=== PATIENT | female | born 1970 | race Caucasian/White ===

== ENCOUNTER → 2017-10-08 09:52 | Outpatient (CLI) | payer OTHER, SELFPAY ==
--- NOTE | 2017-10-08 | DI.MG.S_ITS ---
BILATERAL DIGITAL SCREENING MAMMOGRAM 3D/2D WITH CAD: 10/08/2017 CLINICAL: Routine screening. Family history of breast cancer. Comparison is made to exams dated: 09/24/2016 mammogram, 09/23/2015 mammogram, and 09/16/2014 mammogram - [facility]. The tissue of both breasts is extremely dense, which lowers the sensitivity of mammography. Current study was also evaluated with a Computer Aided Detection (CAD) system. There is an oval equal density asymmetry with an obscured and indistinct margin and punctate calcifications in the right breast at 11 o'clock middle depth. No other significant masses, calcifications, or other findings are seen in either breast. IMPRESSION: INCOMPLETE: NEEDS ADDITIONAL IMAGING EVALUATION The oval equal density asymmetry in the right breast is indeterminate. Mediolateral and spot compression views as well as additional views with possible ultrasound are recommended. This exam was interpreted at Station ID: [id number]. NOTE: For mammograms, a report in lay terms will be sent to the patient. Approximately 15% of breast malignancies will not be visualized mammographically. In the management of a palpable breast mass, a negative mammogram must not discourage biopsy of a clinically suspicious lesion. Electronically Signed By: Juan tate/lali:10/08/2017 11:25:21 copy to: Oxana Caballero letter sent: Additional Imaging Needed ACR BI-RADS Category 0: Incomplete 3340F
== END ==
PROVIDERS: PCP Family Medicine; Visit Provider Family Medicine
DX: Z12.31 Encounter for screening mammogram for malignant neoplasm of breast (principal); Z80.3 Family history of malignant neoplasm of breast
CPT/HCPCS: 77063; 77067

== ENCOUNTER → 2017-10-15 14:13 | Outpatient (CLI) | payer OTHER, SELFPAY ==
--- NOTE | 2017-10-15 14:15 | DI.MG.S_ITS ---
UNILATERAL RIGHT DIGITAL DIAGNOSTIC MAMMOGRAM 3D/2D: 10/15/2017 CLINICAL: Additional evaluation requested from prior study. Comparison is made to exams dated: 10/08/2017 mammogram, 09/24/2016 mammogram, and 09/23/2015 mammogram - [facility]. The tissue of the right breast is extremely dense, which lowers the sensitivity of mammography. There is a calcification in the right breast at 11 o'clock middle depth. The oval equal density asymmetry with an obscured and indistinct margin in the right breast at 11 o'clock middle depth is not seen in additional views. No other significant masses or calcifications are seen in the breast. IMPRESSION: BENIGN The calcification in the right breast at 11 o'clock middle depth likely represents early vascular calcification and is benign. There is no mammographic evidence of malignancy. A 1 year screening mammogram is recommended. NOTE: For mammograms, a report in lay terms will be sent to the patient. Approximately 15% of breast malignancies will not be visualized mammographically. In the management of a palpable breast mass, a negative mammogram must not discourage biopsy of a clinically suspicious lesion. Electronically Signed By: Sofiya Swartz M.D. lk/:10/15/2017 15:08:43 copy to: Oxana Caballero letter sent: Normal Exam ACR BI-RADS Category 2: Benign Finding(s) 3342F
== END ==
PROVIDERS: PCP Family Medicine; Visit Provider Family Medicine
DX: R92.1 Mammographic calcification found on diagnostic imaging of breast (principal)
CPT/HCPCS: 77065; G0279

== ENCOUNTER → 2018-06-25 13:49 | Outpatient (CLI) | payer OTHER, SELFPAY ==
--- NOTE | 2018-06-25 | DI.MRI.S_ITS ---
PROCEDURE: MR FOOT RT WO/W CON INDICATIONS: RIGHT FOOT PAIN TECHNIQUE: Noncontrast sagittal T1 spin echo and T2 fast spin echo with fat saturation, long-axis T1 spin echo and T2 fast spin echo with fat saturation; short-axis T1 spin echo, proton density fast spin echo, and T2 fast spin echo with fat saturation through the forefoot. Post-contrast short axis, long axis, and sagittal T1 spin echo with fat saturation through the forefoot. COMPARISON: [facility], CR, ANKLE 3 VIEWS RIGHT, 03/04/2016, 15:50. FINDINGS: Image quality: Diagnostic. Bones and joints: There is diffuse marrow edema identified involving the navicular without a discrete fracture evident. There may be a microtrabecular fracture along the proximal margin of the bone. Additional marrow edema is evident involving the cuneiforms and the cuboid. There is prominent focal marrow edema evident involving the head of the proximal phalanx of the great toe with an associated joint effusion and mild dorsal subluxation of the distal phalanx with respect to the proximal phalanx. Mild marrow edema is also present involving the calcaneus. No suspicious bony enhancement on the postcontrast images is evident. Soft tissues: Soft tissue edema is identified between the 1st/2nd and 2nd/3rd toes with corresponding subtle enhancement. No definable soft tissue masses are appreciated within this region. The flexor and extensor tendons of the forefoot are within normal limits. The Lisfranc ligament is thinned, but not well seen. No soft tissue masses or loculated fluid collections are identified. No significant atrophy of the intrinsic muscles of the foot are evident. IMPRESSION: 1. No definite soft tissue or bony mass is appreciated. If prior imaging is available, this would be helpful for comparison purposes. 2. Soft tissue edema between the 1st through 3rd toes with corresponding enhancement may be reactive. No definite fluid collections or soft tissue masses. 3. Severe degenerative changes of the interphalangeal joint of the great toe with associated subluxation of the distal phalanx with respect to the proximal phalanx could potentially be related to previous trauma. There is an associated joint effusion. Please correlate clinically to exclude the possibility of superimposed osteomyelitis and infectious synovitis. 4. Prominent marrow edema involving the midfoot bones is most pronounced involving the navicular. A stress fracture is suspected involving the navicular. Dictated by: Arnold Call M.D. on 06/25/2018 at 16:13 Approved by: Arnold Call M.D. on 06/25/2018 at 16:21
== END ==
PROVIDERS: PCP Family Medicine; Visit Provider Podiatrist
DX: M79.671 Pain in right foot (principal); S93.131A Subluxation of interphalangeal joint of right great toe, initial encounter; M25.474 Effusion, right foot; M19.071 Primary osteoarthritis, right ankle and foot
CPT/HCPCS: 73720; A9579

== ENCOUNTER → 2018-08-29 07:48 | Outpatient (CLI) | payer OTHER, SELFPAY ==
[2018-08-29 08:54] LABS: Add Manual Diff / Slide Review NO; Basophils Absolute Auto 100 /uL (0-100); Basophils Percent Auto 1.3 % (0-2); Eosinophils Absolute Auto 400 /uL (0-450); Eosinophils Percent Auto 6.6 % (2-4); Hematocrit 41.1 % (36-46); Hemoglobin 13.5 g/dL (12.0-16.0); Lymphocytes Absolute Auto 1700 /uL (1100-4500); Lymphocytes Percent Auto 30.5 % (25-40); Mean Corpuscular Hemoglobin 31.4 PG (26-34); Mean Corpuscular Volume 95.2 fL (80-100); Monocytes Absolute Auto 500 /uL (0-900); Monocytes Percent Auto 8.4 % (3-14); Neutrophils Absolute Auto 3000 /uL (1500-7000); Neutrophils Percent Auto 53.2 % (50-75); Platelet Count 232 X10^3/uL (150-400); Red Blood Cell Count 4.31 X10^6/uL (4.0-5.2); Red Cell Distribution Width 12.9 % (11.6-14.8); White Blood Cell Count 5.6 X10^3/uL (4.5-11.0)
[2018-08-29 09:20] LABS: Alanine Aminotransferase 27 IU/L (9-52); Albumin 4.6 g/dL (3.5-5.0); Albumin Globulin Ratio 1.6 (1.0-2.8); Alkaline Phosphatase 48 U/L (38-126); Aspartate Aminotransferase 35 IU/L (14-36); BUN Creatinine Ratio 15.7 (6-22); Bilirubin Total 0.8 mg/dL (0.2-1.3); Blood Urea Nitrogen 11 mg/dL (7-17); Calcium 9.6 mg/dL (8.4-10.2); Carbon Dioxide 28 mmol/L (22-32); Chloride 100 mmol/L (98-107); Cholesterol 213 mg/dL (140-199); Estimated Glomerular Filt Rate > 60.0 mL/min (>60); Globulin 2.9 g/dL (1.7-4.1); Glucose 78 mg/dL (70-100); HDL Cholesterol 88 mg/dL (40-60); HEMOLYSIS < 15 (0-50); LDL Cholesterol Calculated 112 mg/dL (<100); Sodium 137 mmol/L (137-145); Total Protein 7.5 g/dL (6.3-8.2); Triglycerides 63 mg/dL (35-150)
[2018-08-29 09:52] LABS: TSH w/ Reflex to FT4 0.04 uIU/mL (0.47-4.68)
== END ==
PROVIDERS: PCP Family Medicine; Visit Provider Family Medicine
DX: G43.709 Chronic migraine without aura, not intractable, without status migrainosus (principal); R25.1 Tremor, unspecified
CPT/HCPCS: 36415; 80053; 80061; 84439; 84443; 85025

== ENCOUNTER → 2018-10-20 14:25 | Outpatient (CLI) | payer OTHER, SELFPAY ==
--- NOTE | 2018-10-20 | DI.MG.S_ITS ---
BILATERAL DIGITAL SCREENING MAMMOGRAM 3D/2D WITH CAD: 10/20/2018 CLINICAL: Routine screening. Comparison is made to exams dated: 10/08/2017 mammogram, 09/24/2016 mammogram, and 09/23/2015 mammogram - [facility]. The tissue of both breasts is extremely dense, which lowers the sensitivity of mammography. Current study was also evaluated with a Computer Aided Detection (CAD) system. No significant masses, calcifications, or other findings are seen in either breast. There has been no significant interval change. IMPRESSION: NEGATIVE There is no mammographic evidence of malignancy. A 1 year screening mammogram is recommended. This exam was interpreted at Station ID: [id number]. NOTE: For mammograms, a report in lay terms will be sent to the patient. Approximately 15% of breast malignancies will not be visualized mammographically. In the management of a palpable breast mass, a negative mammogram must not discourage biopsy of a clinically suspicious lesion. Electronically Signed By: Juan tate/lali:10/20/2018 17:09:12 copy to: Oxana Caballero letter sent: Normal Exam ACR BI-RADS Category 1: Negative 3341F
== END ==
PROVIDERS: PCP Family Medicine; Visit Provider Family Medicine
DX: Z12.31 Encounter for screening mammogram for malignant neoplasm of breast (principal)
CPT/HCPCS: 77063; 77067

== ENCOUNTER → 2018-12-25 10:49 | Outpatient (CLI) | payer OTHER, SELFPAY ==
[2018-12-25 13:44] LABS: TSH w/ Reflex to FT4 0.45 uIU/mL (0.47-4.68)
[2018-12-25 14:43] LABS: Free T4, Direct Thyroxine 1.11 ng/dL (0.78-2.19)
== END ==
PROVIDERS: PCP Family Medicine; Visit Provider Family Medicine
DX: E03.9 Hypothyroidism, unspecified (principal)
CPT/HCPCS: 36415; 84439; 84443

== ENCOUNTER → 2020-04-27 10:27 | Outpatient (CLI) | payer OTHER, SELFPAY | PROVIDERS: PCP Family Medicine; Referring Provider Family Medicine; Visit Provider Family Medicine | DX: Z12.31 Encounter for screening mammogram for malignant neoplasm of breast (principal); Z53.8 Procedure and treatment not carried out for other reasons ==

== ENCOUNTER → 2020-05-04 10:43 | Outpatient (CLI) | payer OTHER, SELFPAY ==
[2020-05-04 12:11] LABS: WBC Urine None Seen (0-5/HPF)
[2020-05-04 12:20] LABS: Appearance Urine UA CLEAR; Bilirubin Urine UA NEGATIVE (NEGATIVE); Color Urine UA YELLOW; Glucose Urine UA NEGATIVE (Negative); Ketones Urine UA NEGATIVE (NEGATIVE); Leukocyte Esterase Urine UA NEGATIVE (NEGATIVE); Nitrite Urine UA NEGATIVE (Negative); Occult Blood Urine UA 2+ (Negative); Protein Urine UA NEGATIVE (Negative); Specific Gravity Urine UA 1.015 (1.000-1.035); Urobilinogen Urine UA 0.2 E.U./dL (0.2)
[2020-05-04 12:35] LABS: Bacteria Urine Occasional (0-1); RBC Urine 0-1/HPF (0-5/HPF)
[2020-05-04 12:36] LABS: Culture Indicated Urine Cult Not Indicated
== END ==
PROVIDERS: PCP Family Medicine; Visit Provider Obstetrics & Gynecology
DX: R30.0 Dysuria (principal)
CPT/HCPCS: 81001

== ENCOUNTER → 2020-05-04 10:50 | Outpatient (CLI) | payer OTHER, SELFPAY ==
[2020-05-04 12:06] LABS: Free T3, Triiodothyronine Free 3.74 pg/mL (2.77-5.27); Free T4, Direct Thyroxine 1.04 ng/dL (0.78-2.19)
[2020-05-04 12:20] LABS: Thyroid Stimulating Hormone 1.06 uIU/mL (0.47-4.68)
== END ==
PROVIDERS: PCP Family Medicine; Referring Provider Obstetrics & Gynecology; Visit Provider Obstetrics & Gynecology
DX: E03.9 Hypothyroidism, unspecified (principal); R30.0 Dysuria
CPT/HCPCS: 36415; 81001; 83001; 84439; 84443; 84481

== ENCOUNTER → 2020-05-17 08:45 | Outpatient (CLI) | payer OTHER, SELFPAY ==
--- NOTE | 2020-05-17 08:47 | DI.MG.S_ITS ---
BILATERAL DIGITAL DIAGNOSTIC MAMMOGRAM 3D/2D: 05/17/2020 CLINICAL: Mastodynia. Comparison is made to exams dated: 10/20/2018 mammogram, 10/15/2017 mammogram, 10/08/2017 mammogram, and 09/24/2016 mammogram - [facility]. The tissue of both breasts is extremely dense, which lowers the sensitivity of mammography. No significant masses, calcifications, or other findings are seen in either breast. IMPRESSION: NEGATIVE There is no abnormality seen in the right breast to correspond with the area of clinical concern and pain in the upper outer quadrant, however, clinical followup is recommended. There is no mammographic evidence of malignancy. A 1 year screening mammogram is recommended. This exam was interpreted at Station ID: [id number]. NOTE: For mammograms, a report in lay terms will be sent to the patient. Approximately 15% of breast malignancies will not be visualized mammographically. In the management of a palpable breast mass, a negative mammogram must not discourage biopsy of a clinically suspicious lesion. Electronically Signed By: Shelton Baeza acr/:05/17/2020 09:27:39 copy to: Oxana Caballero letter sent: Clinical Evaluation ACR BI-RADS Category 1: Negative 3341F
== END ==
PROVIDERS: PCP Family Medicine; Referring Provider Family Medicine; Visit Provider Family Medicine
DX: N64.4 Mastodynia
CPT/HCPCS: 77066; G0279

== ENCOUNTER → 2020-06-09 09:33 | Outpatient (CLI) | payer OTHER, SELFPAY ==
[2020-06-09 10:14] LABS: COVID19 -Nasal RAPID Negative (Negative)
== END ==
PROVIDERS: PCP Family Medicine; Visit Provider Surgery
DX: Z01.812 Encounter for preprocedural laboratory examination (principal); Z20.822 Contact with and (suspected) exposure to COVID-19
CPT/HCPCS: 87635; C9803

== ENCOUNTER 2020-06-10 09:00 | Day surgery (SDC) | payer OTHER, SELFPAY ==
[2020-06-10] VITALS (7 sets, daily range): BP systolic 89–107; BP diastolic 54–69; PULSE 59–82; RESP 14–22; TEMP 36.4–37.1; O2SAT 96–100
[2020-06-10] MEDS: SODIUM CHLORIDE 0.9% 1,000 ML 200 ML IV (09:24)
--- NOTE | 2020-06-10 09:49 | PM.HP.1 ---
History of Present Illness History of Present Illness Date Patient Seen: 06/10/20 Time Patient Seen: 09:50 Chief complaint: SDC Narrative: This is a 49-year-old woman is here for her 1st screening colonoscopy. She denies any symptoms of melena, hematochezia, unexplained abdominal pain, unexplained weight loss. ROS: Thirteen system review is otherwise negative other than as mentioned below and in HPI. PE: GENERAL: Well groomed and cooperative. Appears stated age. Answers questions promptly and appropriately. Vital signs noted. HENT: Normocephalic, atraumatic. Hearing intact. EYES: Conjunctiva pink, sclera white, no periorbital swelling. CARDIOVASCULAR: Regular rate. No pedal edema. RESPIRATORY: Non-tachypneic, breathing comfortably on room air. GASTROINTESTINAL: Abdomen soft and non-distended GENITALURINARY: No flank tenderness. MUSCULOSKELETAL: Equal tone and mass bilaterally. SKIN: Warm, dry, soft, appropriate color for ethnicity. No other lesions, rashes, or wounds. NEURO: Alert and Oriented X 3. No gross sensory deficits, or cognitive issues. PSYCH: Appropriate affect and mood. Patient History Medical History Anxiety Chronic migraine Surgical History Facial fracture History of varicose vein stripping Status post laparoscopic supracervical hysterectomy Status post laparoscopy Family & Social History Family History Mother Melanoma Bipolar 1 disorder Lipids abnormal Social History: household members spouse Tobacco & Substance use: Smoking Status Never smoker alcohol intake never Substance Use Type does not use Meds Home Medications and Allergies Home Medications Medication Instructions Recorded Confirmed Type galcanezumab-gnlm 120 mg/mL 120 mg SUBCUT QMONTH #1 ml 03/10/19 06/10/20 Rx subcutaneous pen injector sumatriptan succinate 25 mg tablet 50 mg PO Q2H PRN #30 tab 09/25/19 06/10/20 Rx bupropion HCl 150 mg tablet,12 hr 150 mg PO BID #180 tab 11/23/19 06/10/20 Rx sustained-release citalopram 20 mg tablet 20 mg PO QDAY #90 tab 03/21/20 06/10/20 Rx levothyroxine 88 mcg tablet 88 mcg PO DAILY #90 tab 03/21/20 06/10/20 Rx Allergies Allergy/AdvReac Type Severity Reaction Status Date / Time amoxicillin [AMOXICILLIN] AdvReac Mild stomach Verified 05/04/20 10:06 pain Exam Vital Signs (past 8 hours): - 06/10/20 09:17 Temperature 98.8 F Pulse Rate 69 Respiratory Rate 16 Blood Pressure 89/62 L Pulse Oximetry 96 Oxygen Delivery Method Room Air Assessment & Plan Assessment & Plan narrative: Risks and benefits of screening colonoscopy and possible polypectomy were discussed with the patient including risk of bleeding, perforation, need for additional procedures, risks of anesthesia. The patient desires to proceed with the colonoscopy procedure. COVID-19 COVID-19 status: Negative Result date/Date tested (Pos, Neg/Pending): 06/09/20 Time Spent With Patient Time with patient: 15-24 minutes Quality VTE Deep Vein Thrombosis/Pulmonary Embolism Present on Admission: No
--- NOTE | 2020-06-10 10:38 | PM.OP.ENDO ---
Operative Date/Time/Diagnoses Date of procedure: 06/10/20 Time of procedure: 10:38 Pre-op diagnosis: Average risk for colon cancer, never had a screening colonoscopy Post-op diagnosis: other (Extremely tortuous colon, no polyps or masses seen, inadequate prep to see lesions small 5 mm) Procedure & Clinicians Study performed: Colonoscopy Procedural sedation performed by the endoscopist Same procedure as scheduled: Yes Indications: Average risk for colon cancer, never had a screening colonoscopy Surgeon: Sagrario Camp Procedure Notes SCOAP/Timeout: Performed Procedure in detail: The patient was brought to the room and placed in left lateral decubitus position with all bony prominences padded. A time-out was performed and then the patient was given procedural sedation starting with 4 mg of Versed and 100 mcg of fentanyl. Total of 7 mg of Versed and 250 micro g of fentanyl were given for the entire procedure. Vitals were monitored throughout the procedure and remained stable. Once adequately sedated, the procedure was begun. A rectal exam was performed revealing no abnormalities. The colonoscope was then introduced to the rectum and advanced to the cecum in the usual fashion. The colon was extremely tortuous, requiring multiple maneuvers including abdominal pressure, using the scope stiffener, and turning the patient on her back. Had to advance the scope blindly around some very extremely torsed appearing areas of the sigmoid colon. The cecum was identified by the appendiceal orifice, the mucosal tri-fold, and the ileocecal valve. The prep was incomplete, and there was pooled stool, as well as adherent stool to the kelly of the colon. After extensive washing, we still were not able to see well enough to rule out lesions smaller than 5 mm. The scope was then retracted while rotating side to side and examining each mucosal fold. At the conclusion of the procedure retroflexion was performed and small grade 1-2 internal hemorrhoids without stigmata of bleeding were seen. The scope was then withdrawn from the rectum the procedure was concluded. The patient tolerated the procedure well and was transferred to the PACU in stable condition. Scope withdrawal time: 8 Sedation minutes: 38 Findings: other findings (Extremely tortuous colon, incomplete prep) Specimen(s): none sent Complications: none Impression: Very tortuous colon, otherwise normal scope within the limitations of the prep. Post-procedure Recommendations: Colonscopy in 5 years (Due to incomplete prep. Next bowel prep should be done with 2 days of clear liquids prior to oral bowel prep medication.) Follow up: as needed Disposition: PACU
[2020-06-10] MEDS: fentaNYL 250 MCG/5 ML INJ IV (10:43)
[2020-06-10] MEDS: MIDAZOLAM 5 MG/5 ML VIAL IV (10:43)
[2020-06-10] MEDS: ONDANSETRON 4 MG ODT SL (11:25)
[2020-06-10] MEDS: ACETAMINOPHEN 325 MG TABLET 650 MG PO (11:28)
--- NOTE | 2020-06-10 11:40 | SUR.PHASEII ---
pt getting ready to leave, IV out and dressed. Stood up and migraine returned with nausea. pt states she had migraine prior to admit and has migraine medication at home. notifeid MD and order for tylenol and SL zofran obtained and given to pt. She had sundar joe and christie cracker as well. States she is ready to go home. Stable on her feeet. out to car in w/c where ready to take her home.
== END 2020-06-10 11:32 | disposition home or self-care (01) ==
PROVIDERS: PCP Family Medicine; Referring Provider Surgery; Visit Provider Surgery
PROC: 0DJD8ZZ Inspection of Lower Intestinal Tract, Via Natural or Artificial Opening Endoscopic (ICD-10-PCS; CPT 45378; principal; 2020-06-10 10:00)
DX: Z12.11 Encounter for screening for malignant neoplasm of colon (principal); K64.0 First degree hemorrhoids; Z53.09 Procedure and treatment not carried out because of other contraindication
CPT/HCPCS: 45378; 99152; 99153; J2250; J3010

== ENCOUNTER → 2021-05-19 08:20 | Outpatient (CLI) | payer OTHER, SELFPAY ==
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
[2021-05-19 08:57] LABS: Add Manual Diff / Slide Review NO; Basophils Absolute Auto 0 /uL (0-100); Basophils Percent Auto 0.2 % (0-2); Eosinophils Absolute Auto 300 /uL (0-450); Eosinophils Percent Auto 5.3 % (2-4); Hemoglobin 12.8 g/dL (12.0-16.0); Lymphocytes Absolute Auto 2200 /uL (1100-4500); Lymphocytes Percent Auto 34.8 % (25-40); Mean Corpuscular HGB Conc 33.7 % (30-36); Mean Corpuscular Hemoglobin 31.7 PG (26-34); Mean Corpuscular Volume 94.1 fL (80-100); Monocytes Absolute Auto 500 /uL (0-900); Monocytes Percent Auto 8.2 % (3-14); Neutrophils Absolute Auto 3300 /uL (1500-7000); Neutrophils Percent Auto 51.5 % (50-75); Platelet Count 240 X10^3/uL (150-400); Red Blood Cell Count 4.04 X10^6/uL (4.0-5.2); Red Cell Distribution Width 12.8 % (11.6-14.8); White Blood Cell Count 6.3 X10^3/uL (4.5-11.0)
[2021-05-19 09:13] LABS: Alanine Aminotransferase 15 IU/L (<35); Albumin 4.6 g/dL (3.5-5.0); Albumin Globulin Ratio 1.7 (1.0-2.8); Alkaline Phosphatase 39 U/L (38-126); Aspartate Aminotransferase 32 IU/L (14-36); BUN Creatinine Ratio 9.7 (6-22); Bilirubin Total 0.5 mg/dL (0.2-1.3); Blood Urea Nitrogen 7 mg/dL (7-17); Calcium 9.8 mg/dL (8.4-10.2); Carbon Dioxide 32 mmol/L (22-32); Chloride 101 mmol/L (98-107); Estimated Glomerular Filt Rate > 60.0 mL/min (>60); Globulin 2.7 g/dL (1.7-4.1); Glucose 47 mg/dL (70-100); HEMOLYSIS < 15 (0-50); Potassium 3.8 mmol/L (3.4-5.1); Sodium 135 mmol/L (137-145); Total Protein 7.3 g/dL (6.3-8.2)
[2021-05-19 09:28] LABS: Vitamin D 25 Hydroxy (D3) 38.7 ng/mL (30.0-100.0)
[2021-05-19 09:43] LABS: Thyroid Stimulating Hormone 2.59 uIU/mL (0.47-4.68)
== END ==
PROVIDERS: PCP Family Medicine; Referring Provider Physician Assistant; Visit Provider Physician Assistant
DX: M54.16 Radiculopathy, lumbar region (principal); E03.9 Hypothyroidism, unspecified; E78.2 Mixed hyperlipidemia; M85.80 Other specified disorders of bone density and structure, unspecified site; Z78.0 Asymptomatic menopausal state
CPT/HCPCS: 36415; 72114; 80053; 82306; 84443; 85025

== ENCOUNTER → 2021-05-25 15:09 | Outpatient (CLI) | payer OTHER, SELFPAY | PROVIDERS: PCP Family Medicine; Referring Provider Physician Assistant; Visit Provider Physician Assistant | DX: M81.0 Age-related osteoporosis without current pathological fracture (principal); Z78.0 Asymptomatic menopausal state; K92.9 Disease of digestive system, unspecified; E89.40 Asymptomatic postprocedural ovarian failure | CPT/HCPCS: 77080 ==

== ENCOUNTER → 2021-05-26 10:54 | Outpatient (CLI) | payer OTHER, SELFPAY ==
[2021-05-26 11:50] LABS: Glucose 86 mg/dL (70-100)
== END ==
PROVIDERS: PCP Family Medicine; Referring Provider Physician Assistant; Visit Provider Physician Assistant
DX: E16.2 Hypoglycemia, unspecified (principal)
CPT/HCPCS: 36415; 82947

== ENCOUNTER → 2021-06-02 11:53 | Outpatient (CLI) | payer OTHER, SELFPAY ==
--- NOTE | 2021-06-02 11:54 | DI.RAD.S_ITS ---
PROCEDURE: XR LUMBAR SPINE 2-3V INDICATIONS: L4-5 spondylolisthesis TECHNIQUE: 3 views of the lumbar spine were acquired. COMPARISON: [facility], CR, XR LUMBAR SPINE 6V W BENDING, 05/19/2021, 8:53. FINDINGS: Bones: 5 beu-fwa-ehedxru vertebrae are present. There is mild L4-L5 anterolisthesis. No vertebral body compression fractures. No suspicious bony lesions. Flexion extension views demonstrate normal range of motion stable alignment without abnormal vertebral body translation. Soft tissues: Overlying bowel gas pattern is normal. No suspicious soft tissue calcifications. IMPRESSION: Grade 1 L4-L5 degenerative spondylolisthesis. Normal range of motion in the flexed and extended positions with no abnormal vertebral body motion. Dictated by: Katerine Grewal MD, PhD on 06/02/2021 at 16:54 Approved by: Katerine Grewal MD, PhD on 06/02/2021 at 16:55
== END ==
PROVIDERS: PCP Family Medicine; Referring Provider Physical Medicine & Rehabilitation; Visit Provider Physical Medicine & Rehabilitation
DX: M43.16 Spondylolisthesis, lumbar region (principal)
CPT/HCPCS: 72100

== ENCOUNTER → 2021-06-07 09:48 | Outpatient (CLI) | payer OTHER, SELFPAY ==
--- NOTE | 2021-06-07 09:50 | DI.MRI.S_ITS ---
PROCEDURE: MR LUMBAR SPINE WO CON INDICATIONS: L4-5 spondylolisthesis TECHNIQUE: Noncontrast sagittal T1 spin echo and T2 fast echo, sagittal STIR, axial T1 and T2 fast spin echo through the lumbar spine. In cases with scoliosis, additional coronal T2 fast spin echo may be performed. COMPARISON: [facility], CT, ABDOMEN/PELVIS WITH CONTRAST, 03/07/2009, 10:56. [facility], CR, XR LUMBAR SPINE 6V W BENDING, 05/19/2021, 8:53. [facility], CR, XR LUMBAR SPINE 2-3V, 06/02/2021, 11:53. FINDINGS: Image quality: This examination is limited by involuntary motion artifact. Alignment and Curvature: Grade 1 L4-5 anterolisthesis is again seen. No definite associated pars defects are seen. Bone Marrow: Marrow is of normal overall signal. No acute vertebral body compression fractures. At the T11 level, there is a mild anterior wedge deformity, with approximately 20% loss of height anteriorly. No acute features are seen. Spinal Cord: Conus medullaris terminates at the L1 level. Visualized cord demonstrates normal signal and size. Paraspinous Soft Tissues: No paravertebral masses. T11-T12: Mild loss of disc height is seen. Loss of disc signal is seen. No significant neural foraminal or central canal narrowing can be seen. T12-L1: Normal appearance. L1-L2: Normal appearance. L2-L3: Normal appearance. L3-L4: No significant neural foraminal or central canal narrowing can be seen. L4-L5: Mild loss of disc height is seen. Loss of disc signal is seen. Moderate disc bulge is seen, with a central disc protrusion/disc uncovering. Prominent facet hypertrophy is seen at this level. There is moderate to severe bilateral neural foraminal narrowing seen. There is a degree of compression seen upon the exiting nerve roots. Moderate to severe central canal narrowing is seen at this level, as on series 5, image 24. L5-S1: No significant abnormality is seen. IMPRESSION: Focal L4-L5 degenerative change is seen, with moderate to severe bilateral neural foraminal narrowing and moderate to severe central canal narrowing. Incidental note is made of: Remote T11 anterior wedge deformity Dictated by: Nelson Fuchs M.D. on 06/07/2021 at 9:51 Approved by: Nelson Fuchs M.D. on 06/07/2021 at 9:56
== END ==
PROVIDERS: PCP Family Medicine; Referring Provider Physical Medicine & Rehabilitation; Visit Provider Physical Medicine & Rehabilitation
DX: M43.16 Spondylolisthesis, lumbar region (principal); M47.816 Spondylosis without myelopathy or radiculopathy, lumbar region; M48.061 Spinal stenosis, lumbar region without neurogenic claudication
CPT/HCPCS: 72148

== ENCOUNTER → 2021-07-03 13:05 | Outpatient (CLI) | payer OTHER, SELFPAY ==
[2021-07-03 16:31] LABS: COVID19 -Nasal RAPID Negative (Negative)
== END ==
PROVIDERS: PCP Family Medicine; Visit Provider Physical Medicine & Rehabilitation
DX: Z20.822 Contact with and (suspected) exposure to COVID-19 (principal)
CPT/HCPCS: 87635; C9803

== ENCOUNTER 2021-07-04 14:08 | Outpatient (CLI) | payer OTHER, SELFPAY ==
[2021-07-04] VITALS (8 sets, daily range): BP systolic 97–129; BP diastolic 57–79; PULSE 57–73; RESP 14–22; O2SAT 100
--- NOTE | 2021-07-04 14:43 | DI.RAD.S_ITS ---
PROCEDURE: PAIN L/S FACET INJ/BLK 1ST KELVIN COMPARISON: None. INDICATIONS: Spondylosis FINDINGS: Fluoroscopic spot filming was performed to verify placement of spinal needles on both sides at the L4, L5, and S1 levels, as labeled on the films. Appropriate location of the needle tips was confirmed by injection of iodinated contrast. IMPRESSION: Intraprocedural examination within normal limits. Dictated by: Nelson Fuchs M.D. on 07/04/2021 at 14:58 Approved by: Nelson Fuchs M.D. on 07/04/2021 at 14:58
[2021-07-04] MEDS: MIDAZOLAM 2 MG/2 ML VIAL IV (14:50)
[2021-07-04] MEDS: fentaNYL 250 MCG/5 ML INJ 50 MCG IV (14:50)
[2021-07-04] MEDS: BUPIVACAINE 0.5% (PF) VIAL 5 ML INJ (14:51)
[2021-07-04] MEDS: IOPAMIDOL 15 ML VIAL 3 ML INJ (14:52)
[2021-07-04] MEDS: LIDOCAINE 1% 20 ML INJ (14:53)
--- NOTE | 2021-07-04 15:07 | P.PCN_ITS ---
Date/Time/Diagnoses Date of procedure: 07/04/21 Time of procedure: 15:07 Pre-procedure diagnosis: 1. FACET ARTHROPATHY Post-procedure diagnosis: same Procedure Notes Procedure: 1. BILATERAL- L4, L5 and S1 DIAGNOSTIC MB BLOCKS with LA Anesthetic Indications: Annamaria is referred by Dr. Long for treatment of Bilateral Axial LBP. Physician: Kadeem Ny Total Fluoroscopy time (seconds): 18 Total sedation minutes: 13 Complications: none Procedure in detail & Post-procedure care: DESCRIPTION OF PROCEDURE Fluoroscopically guided, contrast-controlled bilateral L4, L5 and S1 medial branch blocks with 0.5cc of 0.5% Marcaine. Following review of allergy and review of potential side effects and complications, including, but not necessarily limited to, infection, allergic reaction, local tissue breakdown, nerve injury, paralysis, stroke and possible , the patient indicated that the patient understood and agreed to proceed. An informed consent document was signed by the patient, witnessed by a nurse, and placed in the patient's chart. After review of previous anaesthesic history and IV conscious sedation the patient was deemed safe to proceed with today's procedure with IV conscious sedation as ASA class II designation. Safety time-out was performed to confirm patient ID, procedure to be performed and site of procedure. IV sedation was accomplished with a combination of 2mg of Versed and 50mcg of Fentanyl was administered by the RN after DO order, titrated to patient comfort during the course of the procedure while the patient remained responsive to all verbal commands In the prone position, following sterile prep and drape of the lumbar region, the right L4, L5 and S1 anatomical location of the medial branch of the dorsal ramus was identified fluoroscopically. Subsequently an anesthetic skin wheal using 1% lidocaine solution was initiated at each of the anatomical spots. Subsequently then a 22-gauge 3.5-inch spinal needle was atraumatically introduced and advanced under fluoroscopic guidance at each of the corresponding sites at the right L4, L5 and S1 MB. After negative aspiration, 0.2cc of Isovue 200 was injected, confirming placement without vascular or intrathecal uptake. Subsequently then 0.5cc of 0.5% Marcaine solution was injected at each of the corresponding sites at the right L4, L5 and S1 medial branch locations. The identical procedure was replicated on the left. The patient tolerated the procedure well without signs or symptoms of complications prior to transfer to the recovery area continued monitoring without incident. Post-procedure, the patient was monitored initiating provocative activities to measure the amount of relief from block of the facetogenic pain. The patient reported a VAS of 7 prior to the procedure and a post-procedure VAS of 1. It has been a pleasure to assist in the diagnostic and therapeutic care of your patient. POST OP INSTRUCTIONS The patient was provided with a Pain Log to complete over the next several hours and subsequent days prior to the patient's follow up with the ordering physician. If the patient has dispatcher relay relief to the solution applied, then they may be a candidate for medial branch rhizotomy. The patient is aware, was provided, once again, with a Pain Log and will follow up with the referring physician for review and clinical correlation
== END 2021-07-04 15:29 | disposition home or self-care (01) ==
LOC: RAD 14:08
PROVIDERS: PCP Family Medicine; Referring Provider Physical Medicine & Rehabilitation; Visit Provider Physical Medicine & Rehabilitation
DX: M47.816 Spondylosis without myelopathy or radiculopathy, lumbar region (principal)
CPT/HCPCS: 64493; 64494; 99152; J2250; J3010

== ENCOUNTER → 2021-08-03 07:15 | Outpatient (CLI) | payer OTHER, SELFPAY ==
[2021-08-03 08:24] LABS: COVID19 -Nasal RAPID Negative (Negative)
== END ==
PROVIDERS: PCP Family Medicine; Visit Provider Nurse Practitioner Family
DX: J02.9 Acute pharyngitis, unspecified (principal); Z20.822 Contact with and (suspected) exposure to COVID-19
CPT/HCPCS: 87070; 87635

== ENCOUNTER → 2021-08-21 11:19 | Outpatient (CLI) | payer OTHER, SELFPAY ==
[2021-08-21 14:13] LABS: COVID19 -Nasal RAPID Negative (Negative)
== END ==
PROVIDERS: PCP Family Medicine; Visit Provider Physical Medicine & Rehabilitation
DX: Z20.822 Contact with and (suspected) exposure to COVID-19 (principal)
CPT/HCPCS: 87635; C9803

== ENCOUNTER 2021-08-22 14:12 | Outpatient (CLI) | payer OTHER, SELFPAY ==
[2021-08-22] VITALS (9 sets, daily range): BP systolic 98–127; BP diastolic 61–82; PULSE 65–77; RESP 16–24; TEMP 37.3; O2SAT 99–100
--- NOTE | 2021-08-22 14:45 | DI.RAD.S_ITS ---
PROCEDURE: PAIN L/S FACET INJ/BLK 1ST KELVIN COMPARISON: [facility], XA, PAIN L/S FACET INJ/BLK 1ST KELVIN, 07/04/2021, 14:52. INDICATIONS: SPONDYLOSIS FINDINGS: Access needle tips localized to the right L4-L5, L5-S1 and S1-S2 neural foramina. IMPRESSION: Access needle tips at the right L4-L5, L5-S1 and S1-S2 neural foramina for L4, L5 and S1 medial branch block. Dictated by: Katerine Grewal MD, PhD on 08/22/2021 at 15:45 Approved by: Katerine Grewal MD, PhD on 08/22/2021 at 15:46
[2021-08-22] MEDS: MIDAZOLAM 5 MG/5 ML VIAL IV (15:02)
[2021-08-22] MEDS: IOPAMIDOL 15 ML VIAL 3 ML INJ (15:05)
[2021-08-22] MEDS: LIDOCAINE 2% INJ MDV 20 ML (15:06)
[2021-08-22] MEDS: LIDOCAINE 1% 20 ML (15:06)
--- NOTE | 2021-08-22 15:16 | P.PCN_ITS ---
Date/Time/Diagnoses Date of procedure: 08/22/21 Time of procedure: 15:16 Pre-procedure diagnosis: 1. FACET ARTHROPATHY Post-procedure diagnosis: same Procedure Notes Procedure: 1. BILATERAL- L4, L5 and S1 DIAGNOSTIC MB BLOCKS with SA Anesthetic Indications: Annamaria is referred by Dr. Long for treatment of Bilateral Axial LBP. Physician: Kadeem Ny Total Fluoroscopy time (seconds): 12 Total sedation minutes: 14 Complications: none Procedure in detail & Post-procedure care: DESCRIPTION OF PROCEDURE Fluoroscopically guided, contrast-controlled bilateral L4, L5 and S1 medial branch blocks with 0.5cc of 2% Lidocaine. Following review of allergy and review of potential side effects and complications, including, but not necessarily limited to, infection, allergic reaction, local tissue breakdown, nerve injury, paralysis, stroke and possible , the patient indicated that the patient understood and agreed to proceed. An informed consent document was signed by the patient, witnessed by a nurse, and placed in the patient's chart. After review of previous anaesthesic history and IV conscious sedation the patient was deemed safe to proceed with today's procedure with IV conscious sedation as ASA class II designation. Safety time-out was performed to confirm patient ID, procedure to be performed and site of procedure. IV sedation was accomplished with a combination of 3mg of Versed was administered by the RN after DO order, titrated to patient comfort during the course of the procedure while the patient remained responsive to all verbal commands In the prone position, following sterile prep and drape of the lumbar region, the right L4, L5 and S1 anatomical location of the medial branch of the dorsal ramus was identified fluoroscopically. Subsequently an anesthetic skin wheal us ing 1% lidocaine solution was initiated at each of the anatomical spots. Subsequently then a 22-gauge 3.5-inch spinal needle was atraumatically introduced and advanced under fluoroscopic guidance at each of the corresponding sites at the right L4, L5 and S1 MB. After negative aspiration, 0.2cc of Isovue 200 was injected, confirming placement without vascular or intrathecal uptake. Subsequently then 0.5cc of 2% Lidocaine solution was injected at each of the corresponding sites at the right L4, L5 and S1 medial branch locations. The identical procedure was replicated on the left. The patient tolerated the procedure well without signs or symptoms of complications prior to transfer to the recovery area continued monitoring without incident. Post-procedure, the patient was monitored initiating provocative activities to measure the amount of relief from block of the facetogenic pain. The patient reported a VAS of 7 prior to the procedure and a post-procedure VAS of 1. It has been a pleasure to assist in the diagnostic and therapeutic care of your patient. POST OP INSTRUCTIONS The patient was provided with a Pain Log to complete over the next several hours and subsequent days prior to the patient's follow up with the ordering physician. If the patient has straight line press setter relief to the solution applied, then they may be a candidate for medial branch rhizotomy. The patient is aware, was provided, once again, with a Pain Log and will follow up with the referring physician for review and clinical correlation
== END 2021-08-22 15:38 | disposition home or self-care (01) ==
PROVIDERS: PCP Family Medicine; Referring Provider Physical Medicine & Rehabilitation; Visit Provider Physical Medicine & Rehabilitation
DX: M47.816 Spondylosis without myelopathy or radiculopathy, lumbar region (principal); M47.817 Spondylosis without myelopathy or radiculopathy, lumbosacral region
CPT/HCPCS: 64493; 64494; 99152; J2250

== ENCOUNTER → 2021-11-27 11:44 | Outpatient (CLI) | payer OTHER, SELFPAY ==
[2021-11-27 13:45] LABS: COVID19 -Nasal RAPID Negative (Negative)
== END ==
PROVIDERS: PCP Family Medicine; Visit Provider Physical Medicine & Rehabilitation
DX: Z20.822 Contact with and (suspected) exposure to COVID-19 (principal)
CPT/HCPCS: 87635; C9803

== ENCOUNTER 2021-11-28 07:40 | Outpatient (CLI) | payer OTHER, SELFPAY ==
[2021-11-28] VITALS (12 sets, daily range): BP systolic 96–121; BP diastolic 55–75; PULSE 51–64; RESP 15–22; TEMP 36.7; O2SAT 99–100
--- NOTE | 2021-11-28 07:41 | DI.RAD.S_ITS ---
PROCEDURE: PAIN L/S MED/LAT N RFA BILAT INDICATIONS: SPNODYLOSIS COMPARISON: [facility], XA, PAIN L/S FACET INJ/BLK 1ST KELVIN, 08/22/2021, 15:02. [facility], XA, PAIN L/S FACET INJ/BLK 1ST KELVIN, 07/04/2021, 14:52. FINDINGS: Fluoroscopic spot filming was performed to verify placement of spinal needles on both sides at the L4 and L5 levels, as labeled on the films. Appropriate location of the needle tips was confirmed by injection of iodinated contrast. IMPRESSION: Intraprocedural examination demonstrating appropriate positions of the needles. Dictated by: Nelson Fuchs M.D. on 11/28/2021 at 9:52 Approved by: Nelson Fuchs M.D. on 11/28/2021 at 9:53
[2021-11-28] MEDS: LIDOCAINE 1% 20 ML 5 ML INJ (08:37)
[2021-11-28] MEDS: BUPIVACAINE 0.5% (PF) VIAL 5 ML INJ (08:38)
[2021-11-28] MEDS: MIDAZOLAM 5 MG/5 ML VIAL 3 MG IV (08:55)
--- NOTE | 2021-11-28 09:02 | P.PCN_ITS ---
Date/Time/Diagnoses Date of procedure: 11/28/21 Time of procedure: 09:03 Pre-procedure diagnosis: 1. RECALCITRANT FACET ARTHROPATHY Post-procedure diagnosis: same Procedure Notes Procedure: 1. BILATERAL L4 AND L5 MEDIAL BRANCH RADIOFREQUENCY NEUROTOMY Indications: Annamaria is referred by Dr. Long for treatment of facet arthropathy. Physician: Kadeem Ny Total Fluoroscopy time (seconds): 9 Total sedation minutes: 28 Complications: none Procedure in detail & Post-procedure care: DESCRIPTION OF PROCEDURE Bilateral L4 and L5 medial branch radiofrequency neurotomy The patient is well known to this clinic having undergone previous facet injections with good but temporary relief. The patient has experienced appropriate, concordant relief with previous facet and median branch blocks but the patient's pain has been recalcitrant to further conservative measures. Therefore, based upon the patient's relief and persistent symptoms, the patient is considered an appropriate candidate for facet rhizotomy. All of the patient's questions regarding the risks versus benefits of the procedure, including, but not limited to, bleeding, infection, temporary as well as lasting nerve injury, paralysis, stroke, and , as well treatment alternatives were answered to satisfaction. After obtaining informed consent, denial of pertinent drug allergies, as well as being made aware of the potential risks of bleeding, infection, spinal cord trauma, paralysis, temporary and permanent nerve damage, seizure, stroke, and possible , the patient was brought to the fluoroscopy suite and positioned prone on the fluoroscopy table. The lumbar region was prepped with Betadine and covered with a fenestrated drape in the usual sterile fashion. Appropriate monitors applied including pulse oximeter, pulse, and blood pressure for regular monitoring throughout the procedure. After review of previous anaesthesic history and IV conscious sedation the patient was deemed safe to proceed with today's procedure with IV conscious sedation as ASA class II designation. Safety time-out was performed to confirm patient ID, procedure to be performed and site of procedure. IV sedation was accomplished with a combination of 3mg of Versed administered by the RN after DO order, titrated to patient comfort during the course of the procedure while the patient remained responsive to all verbal commands. After local infiltration using 1% lidocaine, under fluoroscopic guidance, a 10- cm RF insulated needle with a 10-mm active tip was positioned parallel to the junction of the right the superior articulating process where the L5 medial branch resides. Needle placement was confirmed with motor stimulation of .5v on the right which produced local stimulation without radicular component. The stimulation was then increased to 2v with, once again, only local multifidus stimulation without radicular component. The needle was then removed and the identical procedure was performed along the length of the right L4 medial branch with motor stimulation at .7v on the right. The medial branches were then anesthetised with 0.5% marcaine. This was then followed by two discreet lesions performed at 80 degrees Celsius for 90 seconds each. The identical procedures were repeated on the left. The patient tolerated the procedure well without signs or symptoms of complications prior to transfer to the recovery area continued monitoring without incident. The patient was then transferred to the recovery area where they were observed for an appropriate period of time after the injection. The patient reported a VAS score of 9 prior to the procedure and a post-procedure VAS of 0. POST OP INSTRUCTIONS The patient was provided a Pain Log to continue to record the patient's response to the target-specific procedure prior to the patient's follow-up visit with the referring physician. Additionally, specific post-injection care instructions and a contact number to our office were provided if concerns arise regarding possible complications associated with the procedure are suspected.
== END 2021-11-28 09:21 | disposition home or self-care (01) ==
PROVIDERS: PCP Family Medicine; Referring Provider Physical Medicine & Rehabilitation; Visit Provider Physical Medicine & Rehabilitation
DX: M47.816 Spondylosis without myelopathy or radiculopathy, lumbar region (principal)
CPT/HCPCS: 64635; 99152; 99153; J2250

== ENCOUNTER → 2021-12-01 15:03 | Outpatient (CLI) | payer OTHER, SELFPAY ==
--- NOTE | 2021-12-01 | DI.MG.S_ITS ---
BILATERAL DIGITAL SCREENING MAMMOGRAM 3D/2D WITH CAD: 12/01/2021 CLINICAL: Routine screening. Family history of breast cancer. Comparison is made to exams dated: 05/17/2020 mammogram, 10/20/2018 mammogram, 10/08/2017 mammogram, 09/24/2016 mammogram, and 09/23/2015 mammogram - [facility]. The tissue of both breasts is extremely dense, which lowers the sensitivity of mammography. Current study was also evaluated with a Computer Aided Detection (CAD) system. No significant masses, calcifications, or other findings are seen in either breast. There has been no significant interval change. IMPRESSION: NEGATIVE There is no mammographic evidence of malignancy. A 1 year screening mammogram is recommended. Based on Tyrer-Cuzick model (a risk assessment model), the patient's lifetime risk is 22.5% and her 10 year risk is 5.9%. If a patient has an elevated risk, a more comprehensive evaluation should be considered and/or a referral to a genetic counselor. The [place] [employer], [place] [employer], and NCCN Guidelines advise the consideration of Breast MRI as an adjunct to screening mammography in patients whose Lifetime risk to develop breast cancer is 20% or higher. This exam was interpreted at Station ID: [id number]. NOTE: For mammograms, a report in lay terms will be sent to the patient. Approximately 15% of breast malignancies will not be visualized mammographically. In the management of a palpable breast mass, a negative mammogram must not discourage biopsy of a clinically suspicious lesion. Electronically Signed By: Fernando bentley/lali:12/02/2021 16:19:25 copy to: Oxana Caballero letter sent: Normal Exam ACR BI-RADS Category 1: Negative [id number]
== END ==
PROVIDERS: PCP Family Medicine; Referring Provider Family Medicine; Visit Provider Family Medicine
DX: Z12.31 Encounter for screening mammogram for malignant neoplasm of breast (principal); Z80.3 Family history of malignant neoplasm of breast
CPT/HCPCS: 77063; 77067

== ENCOUNTER 2022-07-17 07:25 | Outpatient (CLI) | payer OTHER, SELFPAY ==
[2022-07-17] VITALS (12 sets, daily range): BP systolic 98–115; BP diastolic 58–70; PULSE 61–74; RESP 14–22; TEMP 36.8; O2SAT 98–100
--- NOTE | 2022-07-17 07:46 | DI.RAD.S_ITS ---
PROCEDURE: PAIN L/S MED/LAT N RFA BILAT INDICATIONS: SPONDYLOSIS COMPARISON: [facility], , PAIN L/S MED/LAT N RFA BILAT, 11/28/2021, 8:33. FINDINGS: Fluoroscopic spot filming was performed to verify placement of spinal needles at the L5 and S1 level(s), as labeled on the films. Appropriate location(s) of the needle tip(s) was confirmed by injection of iodinated contrast. IMPRESSION: Fluoro guidance was provided intraoperatively for bilateral L5 and S1 medial branch rhizotomy to be performed by the ordering physician. Dictated by: Kendrick Lowe M.D. on 07/17/2022 at 10:27 Approved by: Kendrick Lowe M.D. on 07/17/2022 at 10:30
[2022-07-17] MEDS: BUPIVACAINE 0.5% (PF) 10 ML VIAL INJ (08:36)
[2022-07-17] MEDS: LIDOCAINE 1% 20 ML 5 ML INJ (08:37)
[2022-07-17] MEDS: MIDAZOLAM 2 MG/2 ML VIAL 4 MG IV (08:45)
--- NOTE | 2022-07-17 08:59 | P.PCN_ITS ---
Date/Time/Diagnoses Date of procedure: 07/17/22 Time of procedure: 09:00 Pre-procedure diagnosis: 1. RECALCITRANT FACET ARTHROPATHY Post-procedure diagnosis: same Procedure Notes Procedure: 1. BILATERAL L5 MEDIAL BRANCH RADIOFREQUENCY NEUROTOMY AND BILATERAL S1 DORSAL RAMUS BRANCH RADIOFREQUENCY NEUROTOMY. Indications: Annamaria is referred by Dr. Long for treatment of facet arthropathy. Physician: Kadeem Ny Total Fluoroscopy time (seconds): 19 Total sedation minutes: 36 Complications: none Procedure in detail & Post-procedure care: DESCRIPTION OF PROCEDURE Bilateral L5 medial branch radiofrequency neurotomy and bilateral S1 dorsal ramus branch radiofrequency neurotomy under fluoroscopy with conscious sedation. The patient is well known to this clinic having undergone previous facet injections with good but temporary relief. The patient has experienced appropriate, concordant relief with previous facet and median branch blocks but the patient's pain has been recalcitrant to further conservative measures. Therefore, based upon the patient's relief and persistent symptoms, the patient is considered an appropriate candidate for facet rhizotomy. All of the patient's questions regarding the risks versus benefits of the procedure, including, but not limited to, bleeding, infection, temporary as well as lasting nerve injury, paralysis, stroke, and , as well treatment alternatives were answered to satisfaction. After obtaining informed consent, denial of pertinent drug allergies, as well as being made aware of the potential risks of bleeding, infection, spinal cord trauma, paralysis, temporary and permanent nerve damage, seizure, stroke, and possible , the patient was brought to the fluoroscopy suite and positioned prone on the fluoroscopy table. The lumbar region was prepped with Betadine and covered with a fenestrated drape in the usual sterile fashion. Appropriate monitors applied including pulse oximeter, pulse, and blood pressure for regular monitoring throughout the procedure. After review of previous anaesthesic history and IV conscious sedation the patient was deemed safe to proceed with today?s procedure with IV conscious sedation as ASA class II designation. Safety time-out was performed to confirm patient ID, procedure to be performed and site of procedure. IV sedation was accomplished with a combination of 4mg of Versed was administered by the RN after DO order, titrated to patient comfort during the course of the procedure while the patient remained responsive to all verbal commands. After local infiltration using 1% lidocaine, under fluoroscopic guidance, a 10- cm RF insulated needle with a 10-mm active tip was positioned parallel to the junction of the bilateral sacral ala and the superior articulating process where the S1 dorsal ramus resides. Needle placement was confirmed with motor stimulation of .5v on the right; motor stimulation of .6v on the left, which produced local stimulation without radicular component. The stimulation was then increased to 2v with, once again, only local multifidus stimulation without radicular component. This was then followed by two discreet lesions performed at 80 degrees Celsius for 90 seconds each. The needle was then removed and the identical procedure was performed along the length of the bilateral L5 medial branch with motor stimulation at .7v on the right; motor stimulation at .6v on the left. The patient tolerated the procedure well without signs or symptoms of complications prior to transfer to the recovery area continued monitoring without incident. The patient was then transferred to the recovery area where they were observed for an appropriate period of time after the injection. The patient reported a VAS score of 9 prior to the procedure and a post-proce dure VAS of 0. POST OP INSTRUCTIONS The patient was provided a Pain Log to continue to record the patient's response to the target-specific procedure prior to the patient's follow-up visit with the referring physician. Additionally, specific post-injection care instructions and a contact number to our office were provided if concerns arise regarding possible complications associated with the procedure are suspected.
== END 2022-07-17 09:16 | disposition home or self-care (01) ==
LOC: RAD 07:26
PROVIDERS: PCP Family Medicine; Referring Provider Physical Medicine & Rehabilitation; Visit Provider Physical Medicine & Rehabilitation
DX: M47.817 Spondylosis without myelopathy or radiculopathy, lumbosacral region
CPT/HCPCS: 64635; 99152; 99153; J2250

== ENCOUNTER → 2022-07-21 09:35 | Outpatient (CLI) | payer OTHER, SELFPAY ==
[2022-07-21 10:14] LABS: Add Manual Diff / Slide Review NO; Basophils Absolute Auto 100 /uL (0-100); Basophils Percent Auto 2.2 % (0-2); Eosinophils Absolute Auto 100 /uL (0-450); Eosinophils Percent Auto 3.2 % (2-4); Hematocrit 36.7 % (36-46); Hemoglobin 12.3 g/dL (12.0-16.0); Lymphocytes Absolute Auto 1500 /uL (1100-4500); Lymphocytes Percent Auto 34.3 % (25-40); Mean Corpuscular HGB Conc 33.6 % (30-36); Mean Corpuscular Hemoglobin 31.2 PG (26-34); Mean Corpuscular Volume 92.9 fL (80-100); Monocytes Absolute Auto 400 /uL (0-900); Monocytes Percent Auto 9.3 % (3-14); Neutrophils Absolute Auto 2200 /uL (1500-7000); Platelet Count 280 X10^3/uL (150-400); Red Blood Cell Count 3.95 X10^6/uL (4.0-5.2); Red Cell Distribution Width 12.9 % (11.6-14.8); White Blood Cell Count 4.4 X10^3/uL (4.5-11.0)
[2022-07-21 10:27] LABS: Alanine Aminotransferase 23 IU/L (<35); Albumin 4.5 g/dL (3.5-5.0); Albumin Globulin Ratio 1.6 (1.0-2.8); Alkaline Phosphatase 44 U/L (38-126); Aspartate Aminotransferase 34 IU/L (14-36); BUN Creatinine Ratio 14.8 (6-22); Bilirubin Total 0.4 mg/dL (0.2-1.3); Blood Urea Nitrogen 9 mg/dL (7-17); Calcium 9.5 mg/dL (8.4-10.2); Carbon Dioxide 31 mmol/L (22-32); Chloride 97 mmol/L (98-107); Cholesterol 243 mg/dL (140-199); Estimated Glomerular Filt Rate > 60 mL/min (>60); Globulin 2.9 g/dL (1.7-4.1); Glucose 82 mg/dL (70-100); HDL Cholesterol 103 mg/dL (40-60); HEMOLYSIS < 15 (0-50); LDL Cholesterol Calculated 126 mg/dL (<100); Potassium 4.2 mmol/L (3.4-5.1); Sodium 135 mmol/L (137-145); Total Protein 7.4 g/dL (6.3-8.2); Triglycerides 71 mg/dL (35-150)
[2022-07-21 10:53] LABS: Thyroid Stimulating Hormone 0.325 uIU/mL (0.47-4.68)
== END ==
PROVIDERS: PCP Family Medicine; Referring Provider Family Medicine; Visit Provider Family Medicine
DX: E03.9 Hypothyroidism, unspecified (principal); E78.2 Mixed hyperlipidemia; G43.709 Chronic migraine without aura, not intractable, without status migrainosus; Z79.899 Other long term (current) drug therapy
CPT/HCPCS: 36415; 80053; 80061; 84443; 85025

== ENCOUNTER → 2022-12-18 12:37 | Outpatient (CLI) | payer OTHER, SELFPAY ==
[2022-12-18 13:03] LABS: Bilirubin Urine UA NEGATIVE (NEGATIVE); Color Urine UA YELLOW; Glucose Urine UA NEGATIVE (Negative); Ketones Urine UA NEGATIVE (NEGATIVE); Leukocyte Esterase Urine UA 2+ (NEGATIVE); Nitrite Urine UA POSITIVE (Negative); Occult Blood Urine UA 2+ (Negative); Protein Urine UA 1+ (Negative); Specific Gravity Urine UA 1.015 (1.000-1.035); Urobilinogen Urine UA 0.2 E.U./dL (0.2)
[2022-12-18 13:10] LABS: pH Urine UA 7.5 (4.5-8.0)
[2022-12-18 13:15] LABS: Appearance Urine UA CLOUDY; Bacteria Urine Many (>30); Culture Indicated Urine Specimen Cultured; RBC Urine 5-10/HPF (0-5/HPF); Squamous Epithelial Cell Urine 0-1 /HPF (0-5/HPF); WBC Urine 10-30/HPF (0-5/HPF)
== END ==
PROVIDERS: PCP Family Medicine; Referring Provider Family Medicine; Visit Provider Family Medicine
DX: R30.0 Dysuria (principal)
CPT/HCPCS: 81003; 81015; 87077; 87086; 87186

== ENCOUNTER 2022-12-20 12:04 | Emergency (ER) | payer OTHER, SELFPAY ==
[2022-12-20] VITALS (11 sets, daily range): BP systolic 97–113; BP diastolic 55–73; PULSE 72–91; RESP 15–25; TEMP 37.7; O2SAT 95–100; BMI 20.2
--- NOTE | 2022-12-20 13:28 | DI.RAD.S_ITS ---
PROCEDURE: XR CHEST 1V INDICATIONS: suspected sepsis TECHNIQUE: One view of the chest was acquired. COMPARISON: None. FINDINGS: Surgical changes and devices: None. Lungs and pleura: Lungs are clear. No pleural effusions or pneumothorax. Mediastinum: Mediastinal contours appear normal. Heart size is normal. Bones and chest wall: No suspicious bony lesions. Overlying soft tissues appear unremarkable. IMPRESSION: Portable chest within normal limits for age. Dictated by: Theresa Moore M.D. on 12/20/2022 at 14:08 Approved by: Theresa Moore M.D. on 12/20/2022 at 14:08
[2022-12-20] MEDS: SODIUM CHLORIDE 0.9% 1,000 ML 1000 ML IV (13:37)
[2022-12-20 13:40] LABS: Add Manual Diff / Slide Review NO; Basophils Absolute Auto 100 /uL (0-100); Basophils Percent Auto 0.6 % (0-2); Eosinophils Absolute Auto 0 /uL (0-450); Eosinophils Percent Auto 0.3 % (2-4); Hematocrit 34.5 % (36-46); Lymphocytes Absolute Auto 800 /uL (1100-4500); Lymphocytes Percent Auto 6.7 % (25-40); Mean Corpuscular HGB Conc 34.7 % (30-36); Mean Corpuscular Volume 92.2 fL (80-100); Monocytes Absolute Auto 1100 /uL (0-900); Monocytes Percent Auto 8.9 % (3-14); Neutrophils Absolute Auto 10300 /uL (1500-7000); Neutrophils Percent Auto 83.5 % (50-75); Platelet Count 245 X10^3/uL (150-400); Red Blood Cell Count 3.74 X10^6/uL (4.0-5.2); Red Cell Distribution Width 12.9 % (11.6-14.8); White Blood Cell Count 12.4 X10^3/uL (4.5-11.0)
[2022-12-20 13:44] LABS: INR 1.1 (0.9-1.3); Prothrombin Time 12.7 SECONDS (10.1-12.7)
[2022-12-20 13:47] LABS: PTT Partial Thromboplastin Tim 31 SECONDS (26-36)
[2022-12-20 13:51] LABS: Alanine Aminotransferase 18 IU/L (<35); Albumin 4.7 g/dL (3.5-5.0); Albumin Globulin Ratio 1.3 (1.0-2.8); Alkaline Phosphatase 70 U/L (38-126); Aspartate Aminotransferase 29 IU/L (14-36); BUN Creatinine Ratio 10.2 (6-22); Bilirubin Total 0.7 mg/dL (0.2-1.3); Blood Urea Nitrogen 6 mg/dL (7-17); Calcium 9.8 mg/dL (8.4-10.2); Carbon Dioxide 26 mmol/L (22-32); Chloride 96 mmol/L (98-107); Estimated Glomerular Filt Rate > 60 mL/min (>60); Globulin 3.5 g/dL (1.7-4.1); Glucose 112 mg/dL (70-100); HEMOLYSIS < 15 (0-50); Lipase 41 U/L (23-300); Potassium 3.8 mmol/L (3.4-5.1); Sodium 133 mmol/L (137-145); Total Protein 8.2 g/dL (6.3-8.2)
[2022-12-20 13:52] LABS: Lactate (Lactic Acid) 1.1 mmol/L (0.7-2.1)
[2022-12-20 14:08] LABS: Procalcitonin 0.06 ng/mL (<0.5)
--- NOTE | 2022-12-20 14:19 | ED.FEMALEGU ---
HPI - Female Genitourinary <Marimar Alarcon PA-C - Last Filed: 12/20/22 18:45> General Chief complaint: Urogenital-Female Stated complaint: Poss urosepsis Time Seen by Provider: 12/20/22 13:51 Mode of arrival: Ambulatory History of Present Illness HPI Narrative: Patient is 52-year-old female who started treatment for UTI through her primary care clinic on 12/18. She was prescribed nitrofurantoin and has been taking it as prescribed. Despite this, she has been feeling worse and yesterday developed fever, up to 102? last night, and flank pain, right greater than left. She has urinary urgency but no dysuria. She noted blood in her urine. She also has a migraine today. She is a long history of migraines and takes a monthly subcutaneous migraine medication. She normally takes ibuprofen, Imitrex, Percocet for her headaches. This headache feels like previous headaches. Related Data Previous Rx's Medication Instructions Recorded sumatriptan succinate 100 mg tablet See Rx Instructions .Route 05/02/22 .COMPLEX #9 tabs fremanezumab-vfrm 225 mg/1.5 mL 225 mg (1.5 mL) SUBCUT QMONTH #4.5 08/09/22 subcutaneous auto-injector (Ajovy) mL citalopram 20 mg tablet See Rx Instructions .Route 09/24/22 .COMPLEX #90 tabs cyclobenzaprine 10 mg tablet 10 mg PO BID PRN muscle spasm #60 10/08/22 tabs tramadol 50 mg tablet 50 mg PO TID PRN pain #30 tabs 10/08/22 bupropion HCl 150 mg tablet,12 hr 150 mg PO BID #180 tabs 11/27/22 sustained-release levothyroxine 88 mcg tablet 88 mcg PO DAILY #90 tabs 11/27/22 primidone 50 mg tablet 50 mg PO BID #180 tabs 11/27/22 oxycodone-acetaminophen 5 mg-325 1 tab PO DAILY PRN pain #20 tabs 12/19/22 mg tablet sulfamethoxazole 800 1 tab PO BID #14 tabs 12/20/22 mg-trimethoprim 160 mg tablet (Bactrim DS) Allergies Allergy/AdvReac Type Severity Reaction Status Date / Time No Known Drug Allergies Allergy Verified 12/20/22 12:21 Review of Systems <Marimar Alarcon PA-C - Last Filed: 12/20/22 18:45> Review of Systems ROS Unobtainable: All systems reviewed & are unremarkable except as noted in HPI and below Patient History <Marimar Alarcon PA-C - Last Filed: 12/20/22 18:45> Medical History Anxiety Chronic migraine Facet arthropathy, lumbar Lumbar radiculopathy Osteopenia of hip Spondylolisthesis at L4-L5 level Surgical History Facial fracture History of varicose vein stripping Status post laparoscopic supracervical hysterectomy Status post laparoscopy Family History Mother Melanoma Bipolar 1 disorder Lipids abnormal alcohol intake frequency: holidays/special occasions only Substance Use Type: does not use Exam <Marimar Alarcon PA-C - Last Filed: 12/20/22 18:45> Narrative Exam Narrative: GENERAL: 52 year old patient appears stated age. Well-developed patient, in mild distress due to headache. NEURO: Patient is alert and oriented x3 and with normal mood and affect. Cranial nerves II through XII are intact and there is no appreciable numbness or weakness. HEAD: Atraumatic. Normocephalic. EYES: Pupils equal round and reactive. Extraocular motions intact. No scleral icterus. No injection or drainage. ENT: Nose without bleeding or purulent drainage. CARDIOVASCULAR: Regular rate and rhythm without murmurs, gallops, or rubs. RESPIRATORY: Clear to auscultation. Breath sounds equal bilaterally. No wheezes, rales, or rhonchi. GASTROINTESTINAL: Abdomen soft, non-tender, nondistended. Positive CVA tenderness, right greater than left. EXTREMITIES: No edema or joint tenderness. SKIN: No rash or erythema of visible areas Initial Vital Signs Initial Vital Signs: Vital Signs Temperature 99.9 F H 12/20/22 12:22 Pulse Rate 89 12/20/22 12:22 Respiratory Rate 15 12/20/22 12:22 Blood Pressure 110/61 12/20/22 12:22 Pulse Oximetry 100 12/20/22 12:22 Oxygen Delivery Method Room Air 08/31/23 12:22 <Yordy Morgan MD - Last Filed: 12/28/22 07:12> Initial Vital Signs Initial Vital Signs: Vital Signs Temperature 99.9 F H 12/20/22 12:22 Pulse Rate 89 12/20/22 12:22 Respiratory Rate 15 12/20/22 12:22 Blood Pressure 110/61 12/20/22 12:22 Pulse Oximetry 100 12/20/22 12:22 Oxygen Delivery Method Room Air 12/20/22 12:22 Course <Marimar Alarcon PA-C - Last Filed: 12/20/22 18:45> Orders Ordered: Discontinued Medications Diphenhydramine HCl (Diphenhydramine 50 Mg/Ml Vial) 25 mg IV NOW ONE Stop: 12/20/22 15:06 Last Admin: 12/20/22 15:27 Dose: 25 mg Documented By: THERESA Hydromorphone HCl (Hydromorphone 0.5 Mg Inj) 0.5 mg IV NOW ONE Stop: 12/20/22 15:07 Last Admin: 12/20/22 15:34 Dose: 0.5 mg Documented By: THERESA Hydromorphone HCl (Hydromorphone 0.5 Mg Inj) 0.5 mg IV NOW ONE Stop: 12/20/22 15:54 Last Admin: 12/20/22 16:32 Dose: 0.5 mg Documented By: THERESA Sodium Chloride (Normal Saline 0.9%) 1,000 mls @ 1,000 mls/hr IV BOLUS ONE Stop: 12/20/22 14:27 Last Infusion: 12/20/22 15:23 Dose: 0 mls/hr Documented By: Admin: 12/20/22 13:37 Dose: 1,000 mls/hr Documented By: ELZBIETA Ceftriaxone Sodium 1,000 mg/ (Sodium Chloride) 100 mls @ 200 mls/hr IV NOW ONE Stop: 12/20/22 14:18 Last Infusion: 12/20/22 15:30 Dose: 0 mls/hr Documented By: Admin: 12/20/22 14:43 Dose: 200 mls/hr Documented By: THERESA Ketorolac Tromethamine (Ketorolac 30 Mg/Ml Vial) 15 mg IV NOW ONE Stop: 12/20/22 14:14 Last Admin: 12/20/22 14:41 Dose: 15 mg Documented By: THERESA Metoclopramide HCl (Metoclopramide 10 Mg/2 Ml Inj) 10 mg IV NOW ONE Stop: 12/20/22 15:06 Last Admin: 12/20/22 15:24 Dose: 10 mg Documented By: THERESA Ondansetron HCl (Ondansetron 4 Mg/2 Ml Inj) 4 mg IV NOW PRN PRN Reason: Nausea And Vomiting Last Admin: 12/20/22 15:32 Dose: 4 mg Documented By: THERESA Vital Signs Vital signs: Vital Signs - 8 hr 12/20/22 12:22 12/20/22 13:27 12/20/22 13:30 Temperature 99.9 F H Pulse Rate 89 89 Respiratory Rate 15 23 Blood Pressure 110/61 103/63 Pulse Oximetry 100 98 Oxygen Delivery Method Room Air 12/20/22 13:30 12/20/22 14:00 12/20/22 14:02 Temperature Pulse Rate 88 90 91 H Respiratory Rate 25 H 21 Blood Pressure Pulse Oximetry 97 97 97 Oxygen Delivery Method Room Air 12/20/22 14:02 12/20/22 14:30 12/20/22 14:30 Temperature Pulse Rate 82 Respiratory Rate 21 Blood Pressure 110/68 110/70 Pulse Oximetry 96 Oxygen Delivery Method 12/20/22 15:00 12/20/22 15:00 12/20/22 15:30 Temperature Pulse Rate 78 Respiratory Rate 18 Blood Pressure 108/67 106/68 Pulse Oximetry 98 Oxygen Delivery Method 12/20/22 15:30 12/20/22 16:00 12/20/22 16:00 Temperature Pulse Rate 75 79 Respiratory Rate 22 23 Blood Pressure 113/55 L Pulse Oximetry 99 95 Oxygen Delivery Method Room Air Room Air 12/20/22 16:30 12/20/22 16:30 12/20/22 17:00 Temperature Pulse Rate 72 Respiratory Rate 22 Blood Pressure 97/59 L 111/73 Pulse Oximetry 97 Oxygen Delivery Method 12/20/22 17:00 Temperature Pulse Rate 72 Respiratory Rate 23 Blood Pressure Pulse Oximetry 96 Oxygen Delivery Method <Yordy Morgan MD - Last Filed: 12/28/22 07:12> Orders Ordered: Discontinued Medications Diphenhydramine HCl (Diphenhydramine 50 Mg/Ml Vial) 25 mg IV NOW ONE Stop: 12/20/22 15:06 Last Admin: 12/20/22 15:27 Dose: 25 mg Documented By: THERESA Hydromorphone HCl (Hydromorphone 0.5 Mg Inj) 0.5 mg IV NOW ONE Stop: 12/20/22 15:07 Last Admin: 12/20/22 15:34 Dose: 0.5 mg Documented By: THERESA Hydromorphone HCl (Hydromorphone 0.5 Mg Inj) 0.5 mg IV NOW ONE Stop: 12/20/22 15:54 Last Admin: 12/20/22 16:32 Dose: 0.5 mg Documented By: THERESA Sodium Chloride (Normal Saline 0.9%) 1,000 mls @ 1,000 mls/hr IV BOLUS ONE Stop: 12/20/22 14:27 Last Infusion: 12/20/22 15:23 Dose: 0 mls/hr Documented By: Admin: 12/20/22 13:37 Dose: 1,000 mls/hr Documented By: ELZBIETA Ceftriaxone Sodium 1,000 mg/ (Sodium Chloride) 100 mls @ 200 mls/hr IV NOW ONE Stop: 12/20/22 14:18 Last Infusion: 12/20/22 15:30 Dose: 0 mls/hr Documented By: Admin: 12/20/22 14:43 Dose: 200 mls/hr Documented By: THERESA Ketorolac Tromethamine (Ketorolac 30 Mg/Ml Vial) 15 mg IV NOW ONE Stop: 12/20/22 14:14 Last Admin: 12/20/22 14:41 Dose: 15 mg Documented By: THERESA Metoclopramide HCl (Metoclopramide 10 Mg/2 Ml Inj) 10 mg IV NOW ONE Stop: 12/20/22 15:06 Last Admin: 12/20/22 15:24 Dose: 10 mg Documented By: THERESA Ondansetron HCl (Ondansetron 4 Mg/2 Ml Inj) 4 mg IV NOW PRN PRN Reason: Nausea And Vomiting Last Admin: 12/20/22 15:32 Dose: 4 mg Documented By: THERESA Vital Signs Vital signs: Vital Signs - 8 hr 12/20/22 12:22 12/20/22 13:27 12/20/22 13:30 Temperature 99.9 F H Pulse Rate 89 89 Respiratory Rate 15 23 Blood Pressure 110/61 103/63 Pulse Oximetry 100 98 Oxygen Delivery Method Room Air 12/20/22 13:30 12/20/22 14:00 12/20/22 14:02 Temperature Pulse Rate 88 90 91 H Respiratory Rate 25 H 21 Blood Pressure Pulse Oximetry 97 97 97 Oxygen Delivery Method Room Air 12/20/22 14:02 12/20/22 14:30 12/20/22 14:30 Temperature Pulse Rate 82 Respiratory Rate 21 Blood Pressure 110/68 110/70 Pulse Oximetry 96 Oxygen Delivery Method 12/20/22 15:00 12/20/22 15:00 12/20/22 15:30 Temperature Pulse Rate 78 Respiratory Rate 18 Blood Pressure 108/67 106/68 Pulse Oximetry 98 Oxygen Delivery Method 12/20/22 15:30 12/20/22 16:00 12/20/22 16:00 Temperature Pulse Rate 75 79 Respiratory Rate 22 23 Blood Pressure 113/55 L Pulse Oximetry 99 95 Oxygen Delivery Method Room Air Room Air 12/20/22 16:30 12/20/22 16:30 12/20/22 17:00 Temperature Pulse Rate 72 Respiratory Rate 22 Blood Pressure 97/59 L 111/73 Pulse Oximetry 97 Oxygen Delivery Method 12/20/22 17:00 Temperature Pulse Rate 72 Respiratory Rate 23 Blood Pressure Pulse Oximetry 96 Oxygen Delivery Method MDM - Female Genitourinary <Marimar Alarcon PA-C - Last Filed: 12/20/22 18:45> Lab Data 12/20/22 13:25 12/20/22 13:25 Labs: Lab Results 12/20/22 12/20/22 12/20/22 Range/Units 13:25 13:25 13:25 WBC 12.4 H (4.5-11.0) X10^3/uL RBC 3.74 L (4.0-5.2) X10^6/uL Hgb 12.0 (12.0-16.0) g/dL Hct 34.5 L (36-46) % MCV 92.2 (80-100) fL MCH 32.0 (26-34) PG MCHC 34.7 (30-36) % RDW 12.9 (11.6-14.8) % Plt Count 245 (150-400) X10^3/uL Neut % (Auto) 83.5 H (50-75) % Lymph % (Auto) 6.7 L (25-40) % [place] % (Auto) 8.9 (3-14) % Eos % (Auto) 0.3 L (2-4) % Baso % (Auto) 0.6 (0-2) % Neut # (Auto) 57971 H (5500-3529) /uL Lymph # (Auto) 800 L (4835-5330) /uL [place] # (Auto) 1100 H (0-900) /uL Eos # (Auto) 0 (0-450) /uL Baso # (Auto) 100 (0-100) /uL PT 12.7 (10.1-12.7) SECONDS INR 1.1 (0.9-1.3) APTT 31 (26-36) SECONDS Sodium 133 L (137-145) mmol/L Potassium 3.8 (3.4-5.1) mmol/L Chloride 96 L (98-107) mmol/L Carbon Dioxide 26 (22-32) mmol/L BUN 6 L (7-17) mg/dL Creatinine 0.59 (0.52-1.04) mg/dL Estimated GFR > 60 (>60) mL/min BUN/Creatinine Ratio 10.2 (6-22) Glucose 112 H (70-100) mg/dL Lactate (0.7-2.1) mmol/L Calcium 9.8 (8.4-10.2) mg/dL Total Bilirubin 0.7 (0.2-1.3) mg/dL AST 29 (14-36) IU/L ALT 18 (<35) IU/L Alkaline Phosphatase 70 (38-126) U/L Total Protein 8.2 (6.3-8.2) g/dL Albumin 4.7 (3.5-5.0) g/dL Globulin 3.5 (1.7-4.1) g/dL Albumin/Globulin Ratio 1.3 (1.0-2.8) Lipase 41 (23-300) U/L Procalcitonin 0.06 (<0.5) ng/mL 12/20/22 Range/Units 13:25 WBC (4.5-11.0) X10^3/uL RBC (4.0-5.2) X10^6/uL Hgb (12.0-16.0) g/dL Hct (36-46) % MCV (80-100) fL MCH (26-34) PG MCHC (30-36) % RDW (11.6-14.8) % Plt Count (150-400) X10^3/uL Neut % (Auto) (50-75) % Lymph % (Auto) (25-40) % [place] % (Auto) (3-14) % Eos % (Auto) (2-4) % Baso % (Auto) (0-2) % Neut # (Auto) (8736-2517) /uL Lymph # (Auto) (5471-8831) /uL [place] # (Auto) (0-900) /uL Eos # (Auto) (0-450) /uL Baso # (Auto) (0-100) /uL PT (10.1-12.7) SECONDS INR (0.9-1.3) APTT (26-36) SECONDS Sodium (137-145) mmol/L Potassium (3.4-5.1) mmol/L Chloride (98-107) mmol/L Carbon Dioxide (22-32) mmol/L BUN (7-17) mg/dL Creatinine (0.52-1.04) mg/dL Estimated GFR (>60) mL/min BUN/Creatinine Ratio (6-22) Glucose (70-100) mg/dL Lactate 1.1 (0.7-2.1) mmol/L Calcium (8.4-10.2) mg/dL Total Bilirubin (0.2-1.3) mg/dL AST (14-36) IU/L ALT (<35) IU/L Alkaline Phosphatase (38-126) U/L Total Protein (6.3-8.2) g/dL Albumin (3.5-5.0) g/dL Globulin (1.7-4.1) g/dL Albumin/Globulin Ratio (1.0-2.8) Lipase (23-300) U/L Procalcitonin (<0.5) ng/mL Point of Care Testing Glucose POC 108 MDM Narrative Medical decision making narrative: Multiple etiologies for patient's symptoms considered including, but not limited to: UTI, pyelonephritis, sepsis, renal obstruction. She has excellent renal function, and is voiding easily. Low suspicion for obstruction. She has mild leukocytosis with a normal lactate and normal vital signs (no fever, no tachycardia). Chest x-ray is clear. I suspect she developed upper tract infection after inadequate treatment with nitrofurantoin, although culture does show sensitivity to nitrofurantoin. We will treat with IV fluids, ceftriaxone, and switch to Bactrim for 7 days. Treated with IV fluids, Toradol, hydromorphone, metoclopramide, and diphenhydramine for migraine. Migraine resolved time of discharge. Shared decision making conversation with patient regarding imaging for pyelonephrosis, we discussed risks of radiation and low suspicion for obstruction. Patient agrees to hold imaging at this time, will take antibiotics as prescribed and if worsening or not improving or return with anticipation of imaging. Patient's symptoms improved over duration of stay with above-stated therapies. Findings and discharge diagnosis discussed with patient/family followed by verbalization of understanding Return precautions discussed with patient/family whom verbalize understanding of diagnosis and plan <Yordy Morgan MD - Last Filed: 12/28/22 07:12> Lab Data Labs: Lab Results 12/20/22 12/20/22 12/20/22 Range/Units 13:25 13:25 13:25 WBC 12.4 H (4.5-11.0) X10^3/uL RBC 3.74 L (4.0-5.2) X10^6/uL Hgb 12.0 (12.0-16.0) g/dL Hct 34.5 L (36-46) % MCV 92.2 (80-100) fL MCH 32.0 (26-34) PG MCHC 34.7 (30-36) % RDW 12.9 (11.6-14.8) % Plt Count 245 (150-400) X10^3/uL Neut % (Auto) 83.5 H (50-75) % Lymph % (Auto) 6.7 L (25-40) % [place] % (Auto) 8.9 (3-14) % Eos % (Auto) 0.3 L (2-4) % Baso % (Auto) 0.6 (0-2) % Neut # (Auto) 57332 H (5471-2466) /uL Lymph # (Auto) 800 L (8653-4863) /uL [place] # (Auto) 1100 H (0-900) /uL Eos # (Auto) 0 (0-450) /uL Baso # (Auto) 100 (0-100) /uL PT 12.7 (10.1-12.7) SECONDS INR 1.1 (0.9-1.3) APTT 31 (26-36) SECONDS Sodium 133 L (137-145) mmol/L Potassium 3.8 (3.4-5.1) mmol/L Chloride 96 L (98-107) mmol/L Carbon Dioxide 26 (22-32) mmol/L BUN 6 L (7-17) mg/dL Creatinine 0.59 (0.52-1.04) mg/dL Estimated GFR > 60 (>60) mL/min BUN/Creatinine Ratio 10.2 (6-22) Glucose 112 H (70-100) mg/dL Lactate (0.7-2.1) mmol/L Calcium 9.8 (8.4-10.2) mg/dL Total Bilirubin 0.7 (0.2-1.3) mg/dL AST 29 (14-36) IU/L ALT 18 (<35) IU/L Alkaline Phosphatase 70 (38-126) U/L Total Protein 8.2 (6.3-8.2) g/dL Albumin 4.7 (3.5-5.0) g/dL Globulin 3.5 (1.7-4.1) g/dL Albumin/Globulin Ratio 1.3 (1.0-2.8) Lipase 41 (23-300) U/L Procalcitonin 0.06 (<0.5) ng/mL 12/20/22 Range/Units 13:25 WBC (4.5-11.0) X10^3/uL RBC (4.0-5.2) X10^6/uL Hgb (12.0-16.0) g/dL Hct (36-46) % MCV (80-100) fL MCH (26-34) PG MCHC (30-36) % RDW (11.6-14.8) % Plt Count (150-400) X10^3/uL Neut % (Auto) (50-75) % Lymph % (Auto) (25-40) % [place] % (Auto) (3-14) % Eos % (Auto) (2-4) % Baso % (Auto) (0-2) % Neut # (Auto) (9829-4550) /uL Lymph # (Auto) (9264-7319) /uL [place] # (Auto) (0-900) /uL Eos # (Auto) (0-450) /uL Baso # (Auto) (0-100) /uL PT (10.1-12.7) SECONDS INR (0.9-1.3) APTT (26-36) SECONDS Sodium (137-145) mmol/L Potassium (3.4-5.1) mmol/L Chloride (98-107) mmol/L Carbon Dioxide (22-32) mmol/L BUN (7-17) mg/dL Creatinine (0.52-1.04) mg/dL Estimated GFR (>60) mL/min BUN/Creatinine Ratio (6-22) Glucose (70-100) mg/dL Lactate 1.1 (0.7-2.1) mmol/L Calcium (8.4-10.2) mg/dL Total Bilirubin (0.2-1.3) mg/dL AST (14-36) IU/L ALT (<35) IU/L Alkaline Phosphatase (38-126) U/L Total Protein (6.3-8.2) g/dL Albumin (3.5-5.0) g/dL Globulin (1.7-4.1) g/dL Albumin/Globulin Ratio (1.0-2.8) Lipase (23-300) U/L Procalcitonin (<0.5) ng/mL Point of Care Testing Glucose POC 108 Discharge Plan Departure Patient Disposition: Home Clinical Impression: Complicated urinary tract infection Migraine Qualifiers: Migraine type: unspecified Instructions: DI for Urinary Tract Infection (UTI) Activity Restrictions/Additional Instructions: *You have been diagnosed with complicated urinary tract infection. You have been given IV fluids, and IV antibiotics while in the emergency department and we will change your oral antibiotics to a slightly more aggressive antibiotic at home. Continue to drink lots of water, rest, take her antibiotics until they are gone even if you feel better. If you are not feeling better after 36-48 hours of antibiotics, including continuing to fever, please return to the emergency department for further evaluation. We did draw blood cultures today and we will monitor them for growth; if any bacteria grows, we will call you. *What to do: *Please continue to take your regular medications as directed. [x] New medication prescriptions sent to your pharmacy: [[facility]] [ ] New medication written as a paper prescription [ ] No new medications given *Please follow up with your primary care provider in 2-3 days, call for an appointment. Let them know you were seen in the Emergency Department and that we ask that you be seen in follow up. We will electronically transmit a record of today's note if your PCP is in our system *If you do not have a primary care provider please contact the [facility] Resource line at [phone]. They will ask some questions about your medical history and help get you set up with a doctor in the community. *Return to Emergency Department if you should have any new, worsening or concerning symptoms, such as [fever greater than 101 F, shaking chills, worsening pain, persistent vomiting or other concerning symptoms]. Prescriptions: New sulfamethoxazole-trimethoprim [Bactrim DS] 800-160 mg tablet 1 tab PO BID Qty: 14 0RF Discontinued nitrofurantoin monohyd/m-cryst [Macrobid] 100 mg capsule 100 mg PO BID Qty: 14 0RF Rx Instructions: must administer with a meal/food No Action sumatriptan succinate 100 mg tablet See Rx Instructions .ROUTE .COMPLEX Qty: 9 6RF Dose Instruction: TAKE ONE TABLET BY MOUTH AT ONSET OF MIGRAINE HEADACHE, MAY REPEAT IN 2 HOURS UP TO 3 TIMES DAILY NEEDED Rx Instructions: TAKE ONE TABLET BY MOUTH AT ONSET OF MIGRAINE HEADACHE, MAY REPEAT IN 2 HOURS UP TO 3 TIMES DAILY NEEDED Ajovy Autoinjector 225 mg/1.5 mL auto-injector 225 mg SUBCUT QMONTH Qty: 4.5 3RF citalopram 20 mg tablet See Rx Instructions .ROUTE .COMPLEX Qty: 90 0RF Dose Instruction: TAKE ONE TABLET (20 MG) BY MOUTH DAILY Rx Instructions: TAKE ONE TABLET (20 MG) BY MOUTH DAILY primidone 50 mg tablet 50 mg PO BID Qty: 180 3RF bupropion HCl 150 mg tablet sustained-release 12 hr 150 mg PO BID Qty: 180 3RF levothyroxine 88 mcg tablet 88 mcg PO DAILY Qty: 90 3RF oxycodone-acetaminophen 5-325 mg tablet 1 tab PO DAILY PRN (Reason: pain) Qty: 20 0RF cyclobenzaprine 10 mg tablet 10 mg PO BID PRN (Reason: muscle spasm) Qty: 60 2RF tramadol 50 mg tablet 50 mg PO TID PRN (Reason: pain) Qty: 30 1RF Referrals: Drew Long MD [Primary Care Provider] - Stand Alone Forms: Patient Portal/API <Yordy Morgan MD - Last Filed: 12/28/22 07:12> Cosign ED Attending Cosignature Attestation: I was immediately available in the department for consultation. ?This documentation has been reviewed and I agree with assessment and plan. Supervised by Yordy Morgan MD
[2022-12-20] MEDS: KETOROLAC 30 MG/ML VIAL 15 MG IV (14:41)
[2022-12-20] MEDS: cefTRIAXone 1,000 MG in SODIUM CHLORIDE 0.9% 100 ML 200 MG IV (14:43)
[2022-12-20] MEDS: METOCLOPRAMIDE 10 MG/2 ML INJ IV (15:24)
[2022-12-20] MEDS: diphenhydrAMINE 50 MG/ML VIAL 25 MG IV (15:27)
[2022-12-20] MEDS: ONDANSETRON 4 MG/2 ML INJ IV (15:32)
[2022-12-20] MEDS: HYDROMORPHONE 0.5 MG INJ IV ×2 (15:34→16:32)
== END 2022-12-20 17:07 | disposition home or self-care (01) ==
PROVIDERS: Emergency Medicine; Emergency Provider Physician Assistant; PCP Family Medicine
DX: N39.0 Urinary tract infection, site not specified (principal); G43.909 Migraine, unspecified, not intractable, without status migrainosus
CPT/HCPCS: 36415; 71045; 80053; 82962; 83605; 83690; 84145; 85025; 85610; 85730; 87040; 93005; 96365; 96375; 96376; 99284; J0696; J1170; J1200; J1885; J2405; J2765

== ENCOUNTER → 2023-01-12 10:46 | Outpatient (CLI) | payer OTHER, SELFPAY ==
--- NOTE | 2023-01-12 | DI.MG.S_ITS ---
BILATERAL DIGITAL SCREENING MAMMOGRAM 3D/2D WITH CAD: 01/12/2023 CLINICAL: Routine screening. Family history of breast cancer. Comparison is made to exams dated: 12/01/2021 mammogram, 05/17/2020 mammogram, and 10/20/2018 mammogram - [facility]. Both breasts are extremely dense, which lowers the sensitivity of mammography (category d />75% glandular tissue). Current study was also evaluated with a Computer Aided Detection (CAD) system. No significant masses, calcifications, or other findings are seen in either breast. There has been no significant interval change. IMPRESSION: NEGATIVE There is no mammographic evidence of malignancy. A 1 year screening mammogram is recommended. Based on Tyrer-Cuzick model (a risk assessment model), the patient's lifetime risk is 22.1% and her 10 year risk is 6.3%. If a patient has an elevated risk, a more comprehensive evaluation should be considered and/or a referral to a genetic counselor. The [place] [employer], [place] [employer], and NCCN Guidelines advise the consideration of Breast MRI as an adjunct to screening mammography in patients whose Lifetime risk to develop breast cancer is 20% or higher. This exam was interpreted at Station ID: [id number]. NOTE: For mammograms, a report in lay terms will be sent to the patient. Approximately 15% of breast malignancies will not be visualized mammographically. In the management of a palpable breast mass, a negative mammogram must not discourage biopsy of a clinically suspicious lesion. Electronically Signed By: Gordon wilson/lali:01/14/2023 08:04:04 copy to: Oxana Caballero letter sent: Normal Exam ACR BI-RADS Category 1: Negative [id number]
== END ==
PROVIDERS: PCP Family Medicine; Referring Provider Family Medicine; Visit Provider Family Medicine
DX: Z12.31 Encounter for screening mammogram for malignant neoplasm of breast (principal); Z80.3 Family history of malignant neoplasm of breast
CPT/HCPCS: 77063; 77067

== ENCOUNTER → 2023-04-12 14:53 | Outpatient (CLI) | payer OTHER, SELFPAY ==
[2023-04-12 16:12] LABS: Appearance Urine UA CLEAR; Bilirubin Urine UA NEGATIVE (NEGATIVE); Color Urine UA YELLOW; Glucose Urine UA NEGATIVE (Negative); Ketones Urine UA NEGATIVE (NEGATIVE); Leukocyte Esterase Urine UA 1+ (NEGATIVE); Nitrite Urine UA NEGATIVE (Negative); Occult Blood Urine UA 2+ (Negative); Protein Urine UA NEGATIVE (Negative); Urobilinogen Urine UA 0.2 E.U./dL (0.2)
[2023-04-12 16:25] LABS: RBC Urine 0-1/HPF (0-5/HPF)
[2023-04-12 16:26] LABS: Bacteria Urine Occasional (0-1); Culture Indicated Urine Specimen Cultured; Squamous Epithelial Cell Urine 1-5 /HPF (0-5/HPF); WBC Urine 1-5/HPF (0-5/HPF)
== END ==
PROVIDERS: PCP Family Medicine; Referring Provider Family Medicine; Visit Provider Family Medicine
DX: R30.0 Dysuria (principal)
CPT/HCPCS: 81003; 81015; 87077; 87086; 87185; 87186

== ENCOUNTER → 2023-05-20 11:46 | Outpatient (CLI) | payer OTHER, SELFPAY ==
[2023-05-21 14:29] LABS: Candida species Negative (Negative); Gardnerella vaginalis Negative (Negative); Trichomoas vaginalis Negative (Negative)
== END ==
PROVIDERS: PCP Family Medicine; Visit Provider Physician Assistant Medical
DX: N39.0 Urinary tract infection, site not specified (principal); N89.8 Other specified noninflammatory disorders of vagina
CPT/HCPCS: 87086; 87480; 87510; 87660

== ENCOUNTER → 2023-06-11 11:26 | Outpatient (CLI) | payer OTHER, SELFPAY ==
--- NOTE | 2023-06-11 11:26 | DI.US.S_ITS ---
PROCEDURE: US PELVIC COMPLETE INDICATIONS: Right pelvic pain TECHNIQUE: Real-time scanning was performed of the pelvic organs, with image documentation. Additional endovaginal scanning was necessary due to incomplete visualization of the adnexal and endometrial structures by transabdominal scanning. COMPARISON: [facility], , PELVIC COMPLETE, 10/25/2014, 13:51. FINDINGS: Uterus: Removed Ovaries: Not well seen. Adnexal regions are unremarkable. Other: No pathologic free abdominal or pelvic fluid. IMPRESSION: Uterus is removed. Ovaries are not visualized. Adnexal regions are unremarkable. We strive to produce accurate, complete, and clear reports of imaging services. To assist us in improving patient care, this report was composed using standard report templates and voice recognition software. Therefore, it may contain abnormal punctuation, insertions and/or omissions. Occasional wrong-word or sound-alike substitutions may occur. Though we review the report and make efforts to correct it, we do recommend that the report be read carefully in proper context to recognize any text inaccuracies. Dictated by: Theresa Moore M.D. on 06/11/2023 at 13:20 Approved by: Theresa Moore M.D. on 06/11/2023 at 13:20
== END ==
PROVIDERS: PCP Family Medicine; Referring Provider Physician Assistant Medical; Visit Provider Physician Assistant Medical
DX: R10.2 Pelvic and perineal pain (principal); Z90.710 Acquired absence of both cervix and uterus
CPT/HCPCS: 76830; 76856

== ENCOUNTER → 2024-01-31 14:49 | Outpatient (CLI) | payer OTHER, SELFPAY ==
--- NOTE | 2024-01-31 14:49 | DI.MG.S_ITS ---
BILATERAL DIGITAL SCREENING MAMMOGRAM 3D/2D WITH CAD: 01/31/2024 CLINICAL: Routine screening. Family history of breast cancer. Comparison is made to exams dated: 01/12/2023 mammogram, 12/01/2021 mammogram, 05/17/2020 mammogram, and 10/20/2018 mammogram - [facility]. The breasts are extremely dense, which lowers the sensitivity of mammography (category d />75% glandular tissue). Current study was also evaluated with a Computer Aided Detection (CAD) system. No significant masses, calcifications, or other findings are seen in either breast. There has been no significant interval change. IMPRESSION: NEGATIVE There is no mammographic evidence of malignancy. A 1 year screening mammogram is recommended. Based on Tyrer-Cuzick model (a risk assessment model), the patient's lifetime risk is 21.9% and her 10 year risk is 6.6%. If a patient has an elevated risk, a more comprehensive evaluation should be considered and/or a referral to a genetic counselor. The [place] [employer], [place] [employer], and NCCN Guidelines advise the consideration of Breast MRI as an adjunct to screening mammography in patients whose Lifetime risk to develop breast cancer is 20% or higher. This exam was interpreted at Station ID: [id number]. NOTE: For mammograms, a report in lay terms will be sent to the patient. Approximately 15% of breast malignancies will not be visualized mammographically. In the management of a palpable breast mass, a negative mammogram must not discourage biopsy of a clinically suspicious lesion. Electronically Signed By: Fernando bentley/lali:01/31/2024 16:09:17 copy to: Oxana Caballero letter sent: Normal Exam ACR BI-RADS Category 1: Negative
== END ==
PROVIDERS: PCP Family Medicine; Referring Provider Family Medicine; Visit Provider Family Medicine
DX: Z12.31 Encounter for screening mammogram for malignant neoplasm of breast (principal); Z80.3 Family history of malignant neoplasm of breast; R92.343 Mammographic extreme density, bilateral breasts
CPT/HCPCS: 77063; 77067

== ENCOUNTER → 2024-03-09 12:17 | Outpatient (CLI) | payer OTHER, SELFPAY ==
[2024-03-09 12:37] LABS: Add Manual Diff / Slide Review NO; Basophils Absolute Auto 100 /uL (0-100); Basophils Percent Auto 1.9 % (0-2); Eosinophils Absolute Auto 200 /uL (0-450); Eosinophils Percent Auto 3.3 % (2-4); Hematocrit 38.2 % (36-46); Lymphocytes Absolute Auto 1500 /uL (1100-4500); Lymphocytes Percent Auto 33.2 % (25-40); Mean Corpuscular Hemoglobin 31.4 PG (26-34); Mean Corpuscular Volume 92.5 fL (80-100); Monocytes Absolute Auto 500 /uL (0-900); Monocytes Percent Auto 10.3 % (3-14); Neutrophils Absolute Auto 2300 /uL (1500-7000); Neutrophils Percent Auto 51.3 % (50-75); Platelet Count 311 X10^3/uL (150-400); Red Blood Cell Count 4.13 X10^6/uL (4.0-5.2); Red Cell Distribution Width 13.1 % (11.6-14.8); White Blood Cell Count 4.5 X10^3/uL (4.5-11.0)
[2024-03-09 13:02] LABS: Alanine Aminotransferase 21 IU/L (<35); Albumin 4.9 g/dL (3.5-5.0); Albumin Globulin Ratio 1.8 (1.0-2.8); Alkaline Phosphatase 57 U/L (38-126); Aspartate Aminotransferase 37 IU/L (14-36); BUN Creatinine Ratio 11.4 (6-22); Bilirubin Total 0.6 mg/dL (0.2-1.3); Blood Urea Nitrogen 8 mg/dL (7-17); Carbon Dioxide 29 mmol/L (22-32); Chloride 97 mmol/L (98-107); Cholesterol 294 mg/dL (140-199); Estimated Glomerular Filt Rate > 60 mL/min (>60); Globulin 2.7 g/dL (1.7-4.1); Glucose 78 mg/dL (70-100); HEMOLYSIS < 15 (0-50); Potassium 4.2 mmol/L (3.4-5.1); Sodium 133 mmol/L (137-145); Total Protein 7.6 g/dL (6.3-8.2); Triglycerides 91 mg/dL (35-150)
[2024-03-09 13:13] LABS: HDL Cholesterol 114 mg/dL (40-60); LDL Cholesterol Calculated 162 mg/dL (<100)
== END ==
PROVIDERS: PCP Family Medicine; Referring Provider Family Medicine; Visit Provider Family Medicine
DX: M47.816 Spondylosis without myelopathy or radiculopathy, lumbar region (principal); E78.2 Mixed hyperlipidemia; G43.709 Chronic migraine without aura, not intractable, without status migrainosus; R25.1 Tremor, unspecified; E03.9 Hypothyroidism, unspecified; F32.A Depression, unspecified; F41.9 Anxiety disorder, unspecified
CPT/HCPCS: 36415; 80053; 80061; 84443; 85025

== ENCOUNTER → 2024-09-30 14:12 | Outpatient (CLI) | payer OTHER, SELFPAY ==
--- NOTE | 2024-09-30 14:15 | DI.RAD.S_ITS ---
PROCEDURE: XR LUMBAR SPINE MIN 4V INDICATIONS: BACK PAIN TECHNIQUE: 5 views of the lumbar spine were acquired, including bilateral oblique views. COMPARISON: [facility], , XR LUMBAR SPINE 2-3V, 06/02/2021, 11:53. FINDINGS: Bones: 5 nonrib-bearing vertebrae are present. The there is a remote appearing T11 anterior wedge deformity, which is similar to 202. No acute vertebral body compression fractures. No suspicious bony lesions. Grade 1 L4-L5 anterolisthesis is again seen. Moderate disc space narrowing can be seen at L4-L5. Lower lumbar spine facet arthropathy is seen. Mild levoconvex scoliotic curvature is noted. Soft tissues: Overlying bowel gas pattern is normal. No suspicious soft tissue calcifications. Oblique images: No pars defects. IMPRESSION: No acute bony abnormality. Grade 1 L4-L5 anterolisthesis seen, without associated pars defects. Remote T11 anterior wedge deformity. Dictated by: Nelson Fuchs M.D. on 09/30/2024 at 14:14 Approved by: Nelson Fuchs M.D. on 09/30/2024 at 14:16
== END ==
PROVIDERS: PCP Family Medicine; Referring Provider Physical Medicine & Rehabilitation; Visit Provider Physical Medicine & Rehabilitation
DX: M47.26 Other spondylosis with radiculopathy, lumbar region (principal); M43.16 Spondylolisthesis, lumbar region; M43.8X4 Other specified deforming dorsopathies, thoracic region
CPT/HCPCS: 72110

== ENCOUNTER → 2025-03-29 14:10 | Outpatient (CLI) | payer OTHER, SELFPAY ==
--- NOTE | 2025-03-29 14:12 | DI.MG.S_ITS ---
MM screening mammo BI: 03/29/2025. BI-RADS: 1 CLINICAL: 54-year old female for bilateral screening mammogram. Tyrer-Cuzick lifetime risk of 4.8%. No personal or first-degree family history of breast cancer. PRIOR EXAMS 01/31/2024, 01/12/2023, 12/01/2021, 05/17/2020. MAMMOGRAPHY TECHNIQUE: 2D and 3D (tomosynthesis) digital mammographic views obtained, with additional images as needed for full coverage. Current study was also evaluated with a Computer Aided Detection (CAD) system. DENSITY C. The breasts are heterogeneously dense, which may obscure small masses. MAMMOGRAPHY FINDINGS Bilateral: No suspicious mass, asymmetry, microcalcification, or other abnormality seen. IMPRESSION: * No evidence of malignancy. RECOMMENDATIONS Bilateral * Annual screening mammography. OVERALL ASSESSMENT CATEGORY BI-RADS-1: Negative. The [employer] recommends annual screening mammography beginning at age 40 for women with average risk of breast cancer. ELECTRONICALLY SIGNED: Kari Monreal M.D. on 03/29/2025 at 10:43:34 PM PT Interpreting Station ID: [id number]
== END ==
LOC: MAMMO 14:11
PROVIDERS: PCP Family Medicine; Referring Provider Family Medicine; Visit Provider Family Medicine
DX: Z12.31 Encounter for screening mammogram for malignant neoplasm of breast (principal); R92.333 Mammographic heterogeneous density, bilateral breasts
CPT/HCPCS: 77063; 77067

== ENCOUNTER 2025-04-08 10:22 | Outpatient (CLI) | payer OTHER, SELFPAY ==
[2025-04-08 11:59] VITALS: BP 107/66; PULSE 58; RESP 14; O2SAT 100
[2025-04-08 12:14] VITALS: BP 146/64; PULSE 59; RESP 16; O2SAT 100
[2025-04-08] MEDS: MIDAZOLAM 2 MG/2 ML VIAL IV (12:18)
[2025-04-08 12:20] VITALS: BP 112/60; PULSE 61; RESP 16; O2SAT 100
[2025-04-08 12:25] VITALS: BP 109/61; PULSE 58; RESP 17; O2SAT 100
--- NOTE | 2025-04-08 12:31 | P.PCN_ITS ---
Date/Time/Diagnoses Date of procedure: 04/08/25 Time of procedure: 12:31 Pre-procedure diagnosis: 1. HNP WITH RADICULAR FEATURES, 2. MULTILEVEL CENTRAL STENOSIS, Post-procedure diagnosis: same Procedure Notes Procedure: 1. FLUOROSCOPICALLY GUIDED CONTRAST CONTROLLED INTERLAMINAR EPIDURAL STEROID INJECTION -L4/5 Indications: Annamaria is referred by Dr. Long for treatment of Bilateral Foraminal Stenosis R>L LE symptoms. Physician: Kadeem Ny Total Fluoroscopy time (seconds): 8 Total sedation minutes: 10 Complications: none Procedure in detail & Post-procedure care: FINDINGS Multilevel Central Spinal Stenosis with Nerve Root Compression DESCRIPTION OF PROCEDURE Fluoroscopically guided, contrast-controlled L4/5 translaminar epidural steroid injection. Following review of allergy and review of potential side effects and complications, including, but not necessarily limited to, infection, allergic reaction, local tissue breakdown, temporary as well as permanent nerve injury, paralysis, stroke and possible , the patient indicated that the patient understood and agreed to proceed. An informed consent document was signed by the patient, witnessed by a nurse, and placed in the patient's chart. Additionally, other treatment options including modalities, medications, and physical therapy were reviewed with the patient. After review of previous anaesthesic history and IV conscious sedation the patient was deemed safe to proceed with today?s procedure with IV conscious sedation as ASA class II designation. Safety time-out was performed to confirm patient ID, procedure to be performed and site of procedure. IV sedation was accomplished with a combination of 2mg of Versed was administered by the RN after DO order, titrated to patient comfort during the course of the procedure while the patient remained responsive to all verbal commands In the prone position, following sterile prep and drape of the lumbar region, the L4/5 translaminar space was identified fluoroscopically. The skin was anesthetized via a 25-gauge, 1.5inch needle with 1% lidocaine solution. At this point, a 22-gauge short bevel spinal needle was atraumatically introduced and advanced under fluoroscopic guidance into the region of the L4/5 translaminar space. Depth was confirmed on lateral view. Radiological data, including multiple fluoroscopic views of the lumbar spine, reveal a spinal needle at the L4/5 translaminar space. Lateral views then show placement of the needle in the epidural space. Subsequent views show contrast material flowing superiorly and inferiorly in the epidural space. No vascular or intrathecal uptake is observed. At this point, using loss of resistance technique with saline and air, the epidural space was entered. This was confirmed following negative aspiration with injection of approximately 1.5cc of Isovue 200, showing excellent epidural flow without vascular or intrathecal uptake. At this point, 1cc of 0.25% marcaine solution combined with 2cc or 10mg of dexamethasone and 80mg of depo medrol was injected without incident. The patient tolerated the procedure well without signs or symptoms of complications prior to transfer to the recovery area continued monitoring without incident. The patient was then transferred to the recovery area where they were observed for an appropriate period of time after the injection. The patient reported a VAS score of 6 prior to the procedure and a post- procedure VAS of 0. POST OP INSTRUCTIONS The patient was provided a Pain Log to continue to record their response to the target-specific procedure prior to follow-up visit with their referring physician. Additionally, specific post-injection care instructions and a contact number to our office were provided if concerns arise regarding possible complications associated with the procedure are suspected.
[2025-04-08 12:40] VITALS: BP 114/60; PULSE 63; RESP 20; O2SAT 100
== END 2025-04-08 12:54 | disposition home or self-care (01) ==
LOC: RAD 10:22
PROVIDERS: PCP Family Medicine; Referring Provider Physical Medicine & Rehabilitation; Visit Provider Physical Medicine & Rehabilitation
DX: M51.16 Intervertebral disc disorders with radiculopathy, lumbar region (principal); M48.061 Spinal stenosis, lumbar region without neurogenic claudication
CPT/HCPCS: 62323; 99152; J1010; J1100; J2250